=== PATIENT | female | born 1940 | race Caucasian/White ===

== ENCOUNTER 2024-04-27 18:58 | Inpatient (IN) | payer OTHER, SELFPAY ==
[2024-04-27] VITALS (7 sets, daily range): BP systolic 123–166; BP diastolic 55–101; BMI 39.3
[2024-04-27 14:40] LABS: Glucose - Point of Care 170 mg/dl (70-99)
[2024-04-27 15:32] LABS: ALT (SGPT) 23 U/L (0-35); AST (SGOT) 48 U/L (14-36); Albumin 4.1 g/dl (3.5-5.0); Alkaline Phosphatase 97 U/L (38-126); Blood Urea Nitrogen 84 mg/dl (7-17); Calcium 8.9 mg/dl (8.4-10.2); Carbon Dioxide 22 mmol/L (22-30); Chloride 100 mmol/L (98-107); Glucose 106 mg/dl (70-99); Potassium 4.6 mmol/L (3.5-5.1); Sodium 136 mmol/L (135-145); Total Bilirubin 0.2 mg/dl (0.2-1.3); eGFR 18.39
[2024-04-27 15:37] LABS: Hematocrit 28.9 % (37.0-47.0); Hemoglobin 7.8 g/dL (12.0-16.0); Mean Corpuscular Hgb 31.3 pg (27.0-31.0); Mean Corpuscular Volume 116.1 fL (81.0-99.0); Mean Platelet Volume 10.6 fL (7.4-10.4); Platelet Count 142 10^3/uL (130-400); Red Blood Cell Count 2.49 10^6/uL (4.20-5.40); Red Cell Dist. Width 17.3 % (11.5-14.5); White Blood Cell Count 5.3 10^3/uL (4.8-10.8)
--- NOTE | 2024-04-27 16:10 | ED.GENMED ---
History of Present Illness
General
Chief Complaint: Blood Sugar Problem
Source: patient and family
Exam Limitations: none
Time Seen by Provider: 04/27/24 15:02
History of Present Illness
History of Present Illness:
83 yo female with h/o IDDM, HTN, recent UTI, lives with daughter who drove her 2 hours from [place] where she lives to visit family. She had a soft pretzel on the way at 12:30. She states she took her usual Apidra Insulin 12 units at 7:30 0a.m.
When they arrived at [facility] at 1:30 p.m., she seemed to be sleeping, they could not arouse her, attempting to get her out of the car, she seemed dazed and confused, not focusing. They sat her in a chair on the sidewalk, covered her with
blankets and called 911. EMS arrives and states her blood glucose was 30 on arrival, they gave her D10 one amp and on arrival blood glucose 170.
Pt is alert, she does not know why she is here, last thing she remembers is riding in the car, next thing she remembers is seeing her daughter sitting in the chair at the foot of her bed.
She denies headache, CP, SOB.
Past History
Past History
ED Past Medical History: HTN and IDDM
ED Past Surgical History: Gynecological (hysterectomy) and Orthopedic
Social History
Tobacco: Non-smoker
Alcohol: None
Living: with family
Review of Systems
Review of Systems
Allergies reviewed?: Yes
All Other Systems: ROS reviewed and negative except as documented in HPI and ROS
Constitutional: Denies fever
Respiratory: Denies trouble breathing
Cardiac: Denies chest pain
ABD/GI: Denies abdominal pain, nausea, vomiting or diarrhea
: Denies dysuria, incontinence or difficulty voiding
Musculoskeletal: Denies edema
Skin: Reports other (bruise right cheek from previous fall)
Neurological: Reports no symptoms
Phy Exam
Physical Exam
Physical Exam:
GENERAL: No acute distress. A&Ox3.
CONSTITUTIONAL: Afebrile.
EYES: clear, conjunctivae normal
ENMT: moist mucus membranes, Pharynx nl
RESPIRATORY: Regular respirations, nonlabored, lungs clear.
CARDIOVASCULAR: Regular rate and rhythm, no murmurs, no rubs.
GI: Soft, nontender, normal BS
Rectal: light brown heme neg stool
MUSCULOSKELETAL: Moves with ease. Well perfused. No edema
SKIN: Warm, dry, pink, mild ecchymosis right upper cheek.
PSYCH: Normal mood and affect. Well kept, interactive and mildly confused at times.
NEUROLOGIC: Awake, alert and oriented. No focal neurological deficits.
Course
Orders/Labs/Results
Orders:
Orders
04/27/24 15:04
Complete Blood Count/With Diff Urgent
Comprehensive Metabolic Panel Urgent
Ferritin Urgent
Comment: ADD ON
Folate Urgent
Comment: ADD ON
TSH Urgent
Comment: ADD ON
Vitamin B12 Urgent
Comment: ADD ON
04/27/24 16:10
0.9% Sodium Chloride 1000 ml [Nss] 1,000 ml IV BOLUS
04/27/24 16:35
Straight cath- Treatment ONCE
CR Chest - 2 Views Urgent
Comment:
Reason For Exam: hypoglycemia
04/27/24 16:57
Urinalysis Reflex To Culture Urgent
Date Specimen was Collected: 04/27/24
Time Specimen was Collected: 16:56
Urine Microscopic Reflex Cult Urgent
Urine Culture Urgent
PAUL Source: U
Specimen Description:
Date Specimen was Collected: 04/27/24
Time Specimen was Collected: 16:56
04/27/24 17:57
CefTRIAXone [Rocephin] 1,000 mg IV NOW STA
04/27/24 18:36
Type+Screen Stat
Hemetest Stools As Directed
04/27/24 18:39
Add On- LAB Stat
Tests Added?: tsh, b12, ferritin, folate
04/27/24 18:41
Admit/Transfer Patient As Directed
Co-Sign Provider:
Level of Care: Inpatient admission
Assign to:: Medical/Surgical
Physician / Group: le mauricio
Diagnosis: UTi
Reason for Hospitalization: UTI
Expected length of stay greater than two midnights?: Yes
ELOS- Estimated Length of Stay in days: 3
I certify the patient meets the requirements for IP care: Yes
PRN Pain Medication Management As Directed
May give lesser potent ordered pain med per pt: Yes
preference::
Protocol:: Medication orders for pain may be administered in a
manner that supports deferring to patient preference
when the pt is:
- Requesting an ordered lesser potent pain medication.
Least to most potent pain medications are defined
as: acetaminophen < NSAID < tramadol < opioids
(morphine, oxycodone, hydromorphone).
- Requesting a lesser dose of the same medication IF
ORDERED.
- Requesting a less intrusive route of administration
if both routes are prescribed by the provider (PO <
IV).
04/27/24 18:43
Code Status As Directed
Resuscitation Status: Full Code
Abnormal Lab Results
04/27/24 04/27/24 04/27/24
14:29 15:04 16:57
RBC 2.49 L 10^6/uL
(4.20-5.40)
Hgb 7.8 L g/dL
(12.0-16.0)
Hct 28.9 L %
(37.0-47.0)
MCV 116.1 H fL
(81.0-99.0)
MCH 31.3 H pg
(27.0-31.0)
MCHC 27.0 L g/dL
(33.0-37.0)
RDW 17.3 H %
(11.5-14.5)
MPV 10.6 H fL
(7.4-10.4)
Absolute Lymphs (auto) 0.7 L 10^3/uL
(1.2-3.4)
Immature Gran % 0.8 H %
(0-0.5)
Neutrophils % 79.2 H %
(42.2-75.2)
Lymphocytes % 13.2 L %
(20.5-51.1)
BUN 84 H mg/dl
(7-17)
Creatinine 2.5 H mg/dL
(0.6-1.0)
Glucose 106 H mg/dl
(70-99)
AST 48 H U/L
(14-36)
Leukocyte Esterase Rfl 1+ A
(Negative)
Urine WBC (Reflex) 21-25 A /HPF
(0-5)
Urine Bacteria (Reflex) Many A
(Negative)
Urine Glucose Trace A
(Negative)
POC Glucose 170 H mg/dl
(70-99)
04/27/24 15:04
04/27/24 15:04
Vital Signs
Initial and Last Documented VS:
Initial Vital Signs
Temp Pulse Resp BP Pulse Ox
98.3 F 60 20 166/57 98
04/27/24 14:38 04/27/24 14:38 04/27/24 14:38 04/27/24 14:38 04/27/24 14:38
Last Documented Vital Signs
Temp Pulse Resp BP Pulse Ox
98.3 F 58 17 166/57 98
04/27/24 14:38 04/27/24 14:53 04/27/24 14:53 04/27/24 14:38 04/27/24 15:09
MDM/Problems Addressed
Differential Diagnosis Includes:
Insulin misuse, UTI,
MDM/Problems Addressed:
83 yo female with h/o IDDM, HTN, recent UTI, lives with daughter who drove her 2 hours from [place] where she lives to visit family. She had a soft pretzel on the way at 12:30. She states she took her usual Apidra Insulin 12 units at 7:30 0a.m.
When they arrived at [facility] at 1:30 p.m., she seemed to be sleeping, they could not arouse her, attempting to get her out of the car, she seemed dazed and confused, not focusing. They sat her in a chair on the sidewalk, covered her with
blankets and called 911. EMS arrives and states her blood glucose was 30 on arrival, they gave her D10 one amp and on arrival blood glucose 170.
Pt is alert, she does not know why she is here, last thing she remembers is riding in the car, next thing she remembers is seeing her daughter sitting in the chair at the foot of her bed.
She denies headache, CP, SOB.
CBC: Hemoglobin 7.8, family member states she has needed blood transfusions in the past
CMP: BUN/creat 84/2.5 family member say her creat hangs around 3.0
Glucose 106 from 170 on arrival
4:27 PM:
Glucose 89
Pt eating
5:50 PM:
UA shows infection
Case discussed with Dr. Flores who agrees with admit for hypoglycemia, YELENA, UTI
Hospitalist notified of admission
Blood consent signed and scanned into chart
*Critical Care Note
Total Time (30-74mins, 75-104mins- exclusive of procedures): Not Applicable
ED Attending Note
-
Portions of this chart may have been created with voice recognition software.� Occasional wrong word or��sound alike� substitutions may have occurred due to the inherent limitations of voice recognition software.
Discharge Plan
Departure
Patient Disposition: Admit
Date of Disposition: 04/27/24
Time of Disposition: 17:14
Admit to: Med/Surg
Presentation/result/management discussed w/ accepting MD/DO: Hospitalist
Condition: Fair
Discharge Problem:
Hypoglycemia associated with diabetes, Acute UTI
Prescriptions:
No Action
allopurinol 100 mg Tablet
100 mg PO DAILY
aspirin 81 mg Tablet,Delayed Release (Dr/Ec)
81 mg PO DAILY
pravastatin 10 mg Tablet
10 mg PO DAILY
ferrous sulfate 325 mg (65 mg iron) Tablet
325 mg PO DAILY
lisinopril 30 mg Tablet
30 mg PO DAILY
bumetanide [Bumex] 1 mg Tablet
1 mg PO BID
ezetimibe [Zetia] 10 mg Tablet
10 mg PO DAILY
fenofibrate nanocrystallized 145 mg Tablet
145 mg PO DAILY
insulin glargine [Lantus Solostar U-100 Insulin] 100 unit/mL (3 mL) Insulin Pen
0 unit SC HS
Patient Comments:
family stated patient just gives herself what ever units she think she needs.
omeprazole 20 mg Tablet,Delayed Release (Dr/Ec)
20 mg PO DAILY
Apidra SoloStar U-100 Insulin 100 unit/mL Insulin Pen
12 sliding scale dose SC AC
Jardiance 10 mg Tablet
10 mg PO DAILY
amlodipine [Norvasc] 10 mg Tablet
10 mg PO DAILY
Referrals:
UNKNOWN - PT DOES,NOT KNOW [Family Provider] -
Interventions
Interventions:
*Risk Screen - Suicide Last Done: 04/27/24 14:52
*General Assessment Last Done: 04/27/24 14:52
*Neglect/Abuse Screening Last Done: 04/27/24 14:52
ED- Fall Risk Assessment Last Done: 04/27/24 15:09
*ED COVID-19 Vaccine History Last Done: 04/27/24 14:53
ED- Neurological Assessment Last Done: 04/27/24 14:40
Discharge Date and Time
Print Language: SAMI
[2024-04-27 16:13] LABS: % Basophils 0.4 % (0-2); % Eosinophils 1.1 % (0-6); % Immature Granulocytes 0.8 % (0-0.5); % Lymphocytes 13.2 % (20.5-51.1); % Monocytes 5.3 % (1.7-9.3); % Neutrophils 79.2 % (42.2-75.2); Absolute Eosinophils 0.1 10^3/uL (0-0.7); Absolute Lymphocytes 0.7 10^3/uL (1.2-3.4); Absolute Monocytes 0.3 10^3/uL (0.1-0.6); Absolute Neutrophils 4.2 10^3/uL (1.4-6.5); Nucleated Red Blood Cells % 0 %
[2024-04-27 16:18] LABS: Anisocytosis 2+; Hypochromasia Slight; Macrocytosis 3+; Normal RBC Morphology No
[2024-04-27 16:30] LABS: Glucose - Point of Care 89 mg/dl (70-99)
[2024-04-27] MEDS: NSS 1000 IV (17:17)
[2024-04-27 17:27] LABS: Urine Albumin Trace (Neg - Trace); Urine Bilirubin Negative (Negative); Urine Character Clear (Clear); Urine Color Straw; Urine Glucose Trace (Negative); Urine Ketone Negative (Negative); Urine Leukocyte 1+ (Negative); Urine Nitrite Negative (Negative); Urine Occult Blood Negative (Negative); Urine Specific Gravity 1.015 (<1.030); Urine Urobilinogen Negative (Neg - 1+)
[2024-04-27 17:37] LABS: Urine Squamous Cell None seen /LPF (Few)
[2024-04-27 17:38] LABS: Urine Bacteria Many (Negative); Urine Red Blood Cell 0-2 /HPF (0-2); Urine White Cell 21-25 /HPF (0-5)
[2024-04-27] MEDS: ROCEPHIN 1000 MG IV (18:15)
--- NOTE | 2024-04-27 18:15 | HPS.HSE ---
Family Physician
-
Family Physician: NOT KNOW UNKNOWN - PT DOES
Chief Complaint
-
unresponsive
History of Present Illness
83 yo female with h/o IDDM, HTN, recent UTI, lives with daughter who drove her 2 hours from [place] where she lives to visit family. she had a soft pretzel on her way. She states she took her usual Apidra Insulin 12 units at 7:30 0a.m. she ate
cereal this morning, when she took insulin. When they arrived at relatives house at 1:30 p.m., she seemed to be sleeping, they could not arouse her, attempting to get her out of the car, she seemed dazed and confused, not focusing. They sat her in a
chair on the sidewalk, called 911.her blood sugar were low in 30's, they gave her D10 Enroute to the hospital. upon my assessment patient does not remember anything that happened. she is awake, alert and seems little confused. denied fever, chills,
runny nose,congestion, cough. denied ARTHUR, dizzy. denied abdominal pain,n,nv,d. denied chest pain,sob. denied dysuria or hematuria. history primary obtained from family at the bedside.
Patient was noted to have a UTI in the ER. Received a dose of ceftriaxone in the ER. Admitting for further management
Medical History
Past Medical History
Past Medical History: Reports Other
Additional Past Medical History:
Hypertension
Type 2 diabetes
Gout
CHF
Iron deficiency anemia
GERD
Hyperlipidemia
Past Surgical History: Reports Other
Additional Past Surgical History:
Part of pancreatitis resected
Toe amputation
Cholecystectomy
Social History
Tobacco: Non-smoker
Alcohol: None
Drug: None
Personal: Single
Living: With Family
Family History
Family History: Not pertinent
Allergies / Home Medications
Allergies reflects when Allergies were last updated in [employer]
Home Medications with original date entered in [employer]
Allergy/Medication List:
Allergies
Allergy/AdvReac Type Severity Reaction Status Date / Time
No Known Allergies Allergy Verified 04/27/24 14:53
Home Medications
allopurinol 100 mg tablet 100 mg PO DAILY 04/27/24
amlodipine 10 mg tablet (Norvasc) 10 mg PO DAILY 04/27/24
aspirin 81 mg tablet,delayed release 81 mg PO DAILY 04/27/24
bumetanide 1 mg tablet 1 mg PO BID 04/27/24
empagliflozin 10 mg tablet (Jardiance) 10 mg PO DAILY 04/27/24
ezetimibe 10 mg tablet (Zetia) 10 mg PO DAILY 04/27/24
fenofibrate nanocrystallized 145 mg tablet 145 mg PO DAILY 04/27/24
ferrous sulfate 325 mg (65 mg iron) tablet 325 mg PO DAILY 04/27/24
insulin glargine 100 unit/mL (3 mL) subcutaneous pen (Lantus Solostar U-100 Insulin) 0 unit SC HS 04/27/24
insulin glulisine U-100 100 unit/mL subcutaneous pen (Apidra SoloStar U-100 Insulin) 12 sliding scale dose SC AC 04/27/24
lisinopril 30 mg tablet 30 mg PO DAILY 04/27/24
omeprazole 20 mg tablet,delayed release 20 mg PO DAILY 04/27/24
pravastatin 10 mg tablet 10 mg PO DAILY 04/27/24
Review of Systems
-
Constitutional: Reports No Symptoms
EENT: Reports No Symptoms
Respiratory: Reports No Symptoms
Cardiac: Reports No Symptoms
Abdomen/GI: Reports No Symptoms
: Reports No Symptoms
Musculoskeletal: Reports No Symptoms
Skin: Reports No Symptoms
Neurological: Reports No Symptoms
Endocrine: Reports No Symptoms
Hematologic/Lymphatic: Reports No Symptoms
Psych: Reports No Symptoms
Physical Exam
Vital Signs
Vital Signs
Temp Pulse Resp BP Pulse Ox
98.3 F 58 17 166/57 98
04/27/24 14:38 04/27/24 14:53 04/27/24 14:53 04/27/24 14:38 04/27/24 15:09
Physical Exam
General: Well Developed, Well Nourished and No Apparent Distress
HEENT: NormoCephalic, Moist mucous membranes and Atraumatic
Respiratory: Clear
Cardiac: S1/S2 and Regular Rhythm; No Murmur or Rub
GI: Soft, Non Tender, Non Distended and Normal Bowel Sounds; No Organomegaly
Rectal: Deferred by Provider
Musculoskeletal: No Clubbing, No Cyanosis and No Edema
Skin: No Rash
Neuro: Awake, Alert and Nonfocal/grossly intact
Psych: Calm
Laboratory Results
-
04/27/24 15:04
04/27/24 15:04
Laboratory Results
Total Bilirubin 0.2 mg/dl (0.2-1.3) 04/27/24 15:04
AST 48 U/L (14-36) H 04/27/24 15:04
ALT 23 U/L (0-35) 04/27/24 15:04
Alkaline Phosphatase 97 U/L (38-126) 04/27/24 15:04
Data Reviewed
-
Diagnostic Radiology: Report Reviewed by me
Lab Data: Labs Reviewed by me
Impression/Plan
-
# metabolic encephalopathy likely from Urinary tract infection
-IV ceftriaxone
-Urine culture pending
-Tylenol as needed for fever or pain
# Possible pneumonia
-Chest x-ray impression of There is a right perihilar/lower lobe opacity which may represent pneumonia or atelectasis.
-Patient denied any cough, congestion, fever or short of breath
-IV ceftriaxone continued
# Type 2 diabetes with symptomatic hypoglycemia
-Hold Jardiance, hold Lantus
-CHO diet
#macrocytic anemia
# hxt of Iron deficiency anemia
-Hemoglobin 7.8
-No active bleeding
-Ferrous sulfate continued
-negative heme test
-Type and screen
# Acute kidney injury on chronic kidney disease stage III likely dehydration
-Creatinine of 2.5
-Patient received normal saline in the ER
-Monitor BMP in a.m.
# Gout
-Allopurinol continued
# Essential hypertension
-Norvasc continue with hold parameters
-Hold lisinopril due to YELENA
# GERD
-PPI continued
# History of CHF
-Patient not in acute exacerbation
-Bumex held
# Hyperlipidemia
-Zetia, fenofibrate continued
# DVT prophylaxis
-Heparin subcu
# CODE STATUS
-Full code
[2024-04-27 19:09] LABS: Glucose - Point of Care 235 mg/dl (70-99)
--- NOTE | 2024-04-27 19:18 | W.PN.UPDATE ---
Update Note
Progress Note Update
This note serves as an addendum to the H&P by bone glue maker DAPHNE Nancy ALEJANDRE
HPI
83F visiting family , BiB daughter HX IDDM, HTN, recent UTI, seen at ER
- lives with daughter who drove her 2 hours from [place] where she lives to visit family.
- had soft pretzel on the way at noon and cereal for breakfast
- tool usual Apidra Insulin 12 units at 7:30 a.m.
- When they arrived at [facility] at 1:30 p.m., she seemed to be sleeping, they could not arouse her, attempting to get her out of the car, she seemed dazed and confused, not focusing.
- They sat her in a chair on the sidewalk, covered her with blankets and called 911.
- EMS arrivesBG \\s 30 on arrival, they gave her D10 one amp and on arrival blood glucose 170.
Pt is alert, she does not know why she is here, last thing she remembers is riding in the car, next thing she remembers is seeing her daughter sitting in the chair at the foot of her bed.
ROS: She denies headache, CP, SOB.
PHX; as above
Vital Signs
Temp Pulse Resp BP Pulse Ox
98.3 F 58 17 166/57 98
04/27/24 14:38 04/27/24 14:53 04/27/24 14:53 04/27/24 14:38 04/27/24 15:09
PE
Gen: No Apparent Distress
HEENT: Moist mucous membranes
Neck: supple
Lungs: CTA
Cor: S1/S2 and Regular Rhythm
Abdomen: Soft, Non Tender, Non Distended
MAYUR: NEG stool HoB per ER AP
INDEPENDENT LIVING INSTRUCTOR:Awake, Alert and Nonfocal/grossly intact
MS:
Psych
04/27/24 04/27/24
15:04 16:57
WBC 5.3
Hgb 7.8 L
MCV 116.1 H
Plt Count 142
BUN 84 H
Creatinine 2.5 H
eGFR 18.39
Urine Nitrite (Reflex) Negative
Urine WBC (Reflex) 21-25 A
Urine Bacteria (Reflex) Many A
04/27/24 CXR: right perihilar/lower lobe opacity which may represent pneumonia or atelectasis.
NO PRIOR DH admission:
ASSESSMENT & PLAN
Hypoactive multifactorial TME, symptomatic hypoglycemia, UTI, severe anemia, renal insufficeciency of unknown chrnicity) - imprved wakefullness in response to D10 given by EMS
HX IrDMT2
- Fall precaution
- Hold Jardiance, Home Insulin regime
- Hypoglycemic protocol for ISS low
- ADA diet
UTI - asymptomatic
- UCx sent
- IV CFTX
- Tylenol PRN
Possible PNA vs Atx
- Nl WCC, No cough, no recent URTI
- check PCT if POS will ad PO Azithromycin
- current IV CFTX is for UTI
Macrocytic anemia; no priot Hgb data: Hgb 7.8
- negative HoB stool at ER
- no active bleeding
- Type and screen &
- Blood consented
- check Ferritin
- check B12, Folate , TSH
Essential hypertension
- cont. Norvasc with hold parameters
- Hold lisinopril due to YELENA
Renal insufficiency of unknown chronicity : No prior Cr data
- YELENA vs YELENA on CKD
- Creatinine of 2.5
- IV NS
- Hold Lisinopril
- Trend Cr
Gout
- no acute flare
- Lower Allopurinol to [address] of 100 daily due to low eGFR
GERD
- on PO PPI continued
HX CHF NOS
- Not in acute exacerbation
- Bumex held due renal insufficiency
Hyperlipidemia
- on Zetia, fenofibrate
DVT prophylaxis: SQH
Full code
IP MS
[2024-04-27 20:11] LABS: Folate 14.1 ng/ml (2.76-20); Vitamin B12 933 pg/ml (239-931)
[2024-04-27 20:18] LABS: Procalcitonin < 0.05 ng/ml (0.0-0.25)
[2024-04-27 21:20] LABS: Glucose - Point of Care 214 mg/dl (70-99)
[2024-04-27] MEDS: HEPARIN 5000 UNITS SC (22:09)
[2024-04-28 03:18] LABS: Glucose - Point of Care 128 mg/dl (70-99)
--- NOTE | 2024-04-28 03:56 | PTCARENOTE ---
Pt received from ER last night, pt pulled over to her bed. Pt confused to place. States she is cold. Pt seen shaking, asking for more covers. Pt oriented to the room call norris within reach, and bed alarm placed for pt's safety. Unable to get oral or
axillary temperatures even after covering the pt with warm blankets. Rectal temp=94. CYBER SYSTEMS OPERATIONS SPECIALIST made aware and order for a gonzales hugger given. Pt'd goal Temp=97. DP=115/57, HR=67, SpO2=95% on RA. Pt's GN=027. At 0030, pt temp=97.4 orally, Gonzales hugger on
hold. Pt's Temp rechecked at 0300, =97.6 orally. Pt's EV=665. Will continue to monitor the pt.
[2024-04-28 04:59] VITALS: BMI 38.9
[2024-04-28 06:53] LABS: Blood Urea Nitrogen 73 mg/dl (7-17); Calcium 8.5 mg/dl (8.4-10.2); Carbon Dioxide 19 mmol/L (22-30); Chloride 107 mmol/L (98-107); Estimated Creatinine Clearance 16 ml/min; Glucose 102 mg/dl (70-99); Potassium 4.6 mmol/L (3.5-5.1); Sodium 139 mmol/L (135-145); eGFR 21.43
[2024-04-28 07:30] VITALS: BP 127/50
[2024-04-28 07:32] LABS: Glucose - Point of Care 103 mg/dl (70-99)
[2024-04-28 07:47] LABS: Hematocrit 28.2 % (37.0-47.0); Mean Corp Hgb Conc. 31.9 g/dL (33.0-37.0); Mean Corpuscular Hgb 31.5 pg (27.0-31.0); Mean Corpuscular Volume 98.6 fL (81.0-99.0); Mean Platelet Volume 9.9 fL (7.4-10.4); Platelet Count 173 10^3/uL (130-400); Red Blood Cell Count 2.86 10^6/uL (4.20-5.40); Red Cell Dist. Width 16.5 % (11.5-14.5); White Blood Cell Count 4.6 10^3/uL (4.8-10.8)
[2024-04-28] MEDS: NOVOLOG FLEXPEN-LOW RESISTANCE SC (09:35)
[2024-04-28] MEDS: FEOSOL 325 MG PO (09:36)
[2024-04-28] MEDS: TRICOR 145 MG PO (09:36)
[2024-04-28] MEDS: PROTONIX 40 MG PO (09:36)
[2024-04-28] MEDS: ZYLOPRIM 50 MG PO (09:36)
[2024-04-28] MEDS: ASPIR LOW (ENTERIC COATED) 81 MG PO (09:36)
[2024-04-28] MEDS: ZETIA 10 MG PO (09:36)
[2024-04-28] MEDS: PRAVACHOL 10 MG PO (09:37)
[2024-04-28] MEDS: HEPARIN 5000 UNITS SC ×2 (09:37→20:51)
[2024-04-28] MEDS: NORVASC 10 MG PO (09:37)
[2024-04-28] MEDS: FLUSH (NSS) 1 FLUSH IV ×2 (09:38→13:17)
[2024-04-28 10:23] LABS: Glycohemoglobin (HgbA1c) 7.3 % (4.0-5.6)
--- NOTE | 2024-04-28 11:15 | W.PN.HOSP.TC ---
Today's Communication/Plan
-
see bold
Assessment / Plan
Assessment / Plan
Gen: NAD, Awake and alert
Eyes: EOMI, PERRLA, no scleral icterus.
Neck: supple.
CV: RRR, +S1/S2, no m/r/g.
Resp: CTAB, no rales, wheezes, or rhonchi.
Abd: +BS, soft, NT, ND
Skin: No rashes.
Neuro: CN 2-12 intact, non-focal.
Psych: Normal mood and affect.
CXR: R perihilar/lower lobe opacity which may represent pneumonia or atelectasis.
Acute metabolic encephalopathy:
-likely due to YELENA, hypoglycemia, and possible UTI
-cont IV ceftriaxone
-Urine culture pending
DM2:
-a1c 7.3%
-holding Jardiance/Lantus with symptomatic hypoglycemia
-SSI/accuchecks/diabetic diet
YELENA:
-baseline Cr unknown
-start NS @ 60cc/hr
Other problems:
Chronic anemia: Hb stable, Heme NEG, cont PO Fe
Bacterial PNA has been ruled out with NEG procalcitonin
Gout: cont Allopurinol
Essential hypertension: Cont Norvasc, holding ACEi with YELENA
GERD: cont PPI
Chronic CHF (unknown type): Bumex on hold with YELENA
Hyperlipidemia: Cont Zetia/fenofibrate
FULL/Heparin
Total time spent on today's encounter was 50 minutes which included time spent in counseling the patient/family regarding diagnosis and treatment plan as listed above, goals of care, and symptom management. Case was discussed with nursing staff,
specialists, and care coordinators/case management. All labs and imaging personally reviewed by me. Remainder the time spent in detailed review of previous records, lab data, imaging, and other medical provider documentation.
Anticipated Discharge: 24 - 48 hours
Subjective/Interval History
-
Date of Service: April 28, 2024
Objective Data
-
Labs:
Laboratory Results
04/28/24
06:22
WBC 4.6 L
Hgb 9.0 L
Hct 28.2 L
Plt Count 173 D
Sodium 139
Potassium 4.6
Chloride 107
Carbon Dioxide 19 L
BUN 73 H
Creatinine 2.2 H
Glucose 102 H
Calcium 8.5
Vital Signs:
Vital Signs
Temp Pulse Resp BP Pulse Ox
97.8 F 67 20 127/50 97
04/28/24 07:30 04/28/24 07:30 04/28/24 07:30 04/28/24 09:37 04/28/24 07:30
I&O
04/27/24 04/28/24 04/29/24
06:59 06:59 06:59
Intake Total 240 / 240
Output Total 700 / 700
Balance -460 / -460
[2024-04-28 11:48] VITALS: BP 130/65; PULSE 75; O2SAT 98
[2024-04-28 11:55] LABS: Glucose - Point of Care 236 mg/dl (70-99)
[2024-04-28] MEDS: NSS 1000 IV (13:15)
[2024-04-28] MEDS: NOVOLOG FLEXPEN-LOW RESISTANCE 2 UNITS SC (13:35)
--- NOTE | 2024-04-28 15:19 | CM ---
CM reviewed chart. Patient is here for metabolic encephalopathy due to UTI. She had a dwelling attached to her daughter's [place] home. She is independent with her walker. She lives alone. She does not drive. Her daughter provides transportation. She
also owns a cane and wheelchair. 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 She denies any +SDOHs. She was with [facility] for [facility], but was to be discharged yesterday, 04/27/2024. She has an active PCP and pharmacy.
ANTICIPATED DISCHARGE PLAN: Discharge home with support of her daughter and family, once medically cleared.
[2024-04-28 15:29] VITALS: BP 134/62
[2024-04-28 16:52] LABS: Glucose - Point of Care 272 mg/dl (70-99)
[2024-04-28] MEDS: NOVOLOG FLEXPEN-LOW RESISTANCE 3 UNITS SC (17:53)
[2024-04-28] MEDS: STERILE WATER FOR INJECTION 10 ML IV (17:54)
[2024-04-28] MEDS: FLUSH (NSS) 2 FLUSH IV (17:54)
[2024-04-28] MEDS: ROCEPHIN 1000 MG IV (17:54)
[2024-04-28 21:04] LABS: Glucose - Point of Care 295 mg/dl (70-99)
[2024-04-28 23:55] VITALS: BP 122/65
[2024-04-29] MEDS: NSS 1000 IV ×2 (05:20→22:15)
--- NOTE | 2024-04-29 05:44 | PTCARENOTE ---
Pt awake intermittently t/o the night. Pt using call norris appropriately. IVF infusing as ordered. No issues to report. Will continue to monitor.
[2024-04-29 06:00] VITALS: BMI 38.8
[2024-04-29 07:30] VITALS: BP 106/63
[2024-04-29 08:01] LABS: Glucose - Point of Care 180 mg/dl (70-99)
[2024-04-29] MEDS: NOVOLOG FLEXPEN-LOW RESISTANCE 1 UNITS SC (08:04)
[2024-04-29] MEDS: ASPIR LOW (ENTERIC COATED) 81 MG PO (08:05)
[2024-04-29] MEDS: PROTONIX 40 MG PO (08:05)
[2024-04-29] MEDS: TRICOR 145 MG PO (08:05)
[2024-04-29] MEDS: PRAVACHOL 10 MG PO (08:05)
[2024-04-29] MEDS: ZETIA 10 MG PO (08:05)
[2024-04-29] MEDS: FEOSOL 325 MG PO (08:05)
[2024-04-29] MEDS: HEPARIN 5000 UNITS SC (08:07)
[2024-04-29] MEDS: NORVASC PO (08:07)
--- NOTE | 2024-04-29 09:13 | W.PN.HOSP.TC ---
Today's Communication/Plan
-
see bold
Assessment / Plan
Assessment / Plan
Gen: NAD, Awake and alert
Eyes: EOMI, PERRLA, no scleral icterus.
Neck: supple.
CV: remains RRR, +S1/S2, no m/r/g.
Resp: remains CTAB, no rales, wheezes, or rhonchi.
Abd: remains +BS, soft, NT, ND
Skin: No rashes.
Neuro: CN 2-12 intact, non-focal.
Psych: Normal mood and affect.
04/27/24 16:57 Urine Urine Culture - Preliminary
Gram negative bacilli
CXR: R perihilar/lower lobe opacity which may represent pneumonia or atelectasis.
Acute metabolic encephalopathy:
-likely due to YELENA, hypoglycemia, and possible UTI
-cont IV ceftriaxone
-Urine culture pending
DM2:
-a1c 7.3%
-holding Jardiance/Lantus with symptomatic hypoglycemia
-SSI/accuchecks/diabetic diet
YELENA:
-baseline Cr unknown
-cont NS @ 60cc/hr
Other problems:
Chronic anemia: Hb stable, Heme NEG, cont PO Fe
Bacterial PNA has been ruled out with NEG procalcitonin
Gout: cont Allopurinol
Essential hypertension: Cont Norvasc, holding ACEi with YELENA
GERD: cont PPI
Chronic CHF (unknown type): Bumex on hold with YELENA
Hyperlipidemia: Cont Zetia/fenofibrate
FULL/Heparin
Anticipated Discharge: Within 24 hours
Subjective/Interval History
-
Date of Service: April 29, 2024
No new complaints.
Objective Data
-
Labs:
Laboratory Results
04/29/24
09:09
WBC Pending
Hgb Pending
Hct Pending
Plt Count Pending
Sodium Pending
Potassium Pending
Chloride Pending
Carbon Dioxide Pending
BUN Pending
Creatinine Pending
Glucose Pending
Calcium Pending
Vital Signs:
Vital Signs
Temp Pulse Resp BP Pulse Ox
97.8 F 75 20 106/63 97
04/29/24 07:30 04/29/24 07:30 04/29/24 07:30 04/29/24 08:07 04/29/24 07:30
I&O
04/28/24 04/29/24 04/30/24
06:59 06:59 06:59
Intake Total 240 / 240 1740 / 1740
Output Total 700 / 700
Balance -460 / -460 1740 / 1740
[2024-04-29 09:19] LABS: Hematocrit 27.8 % (37.0-47.0); Hemoglobin 8.9 g/dL (12.0-16.0); Mean Corpuscular Hgb 31.2 pg (27.0-31.0); Mean Corpuscular Volume 97.5 fL (81.0-99.0); Mean Platelet Volume 10.1 fL (7.4-10.4); Platelet Count 163 10^3/uL (130-400); Red Blood Cell Count 2.85 10^6/uL (4.20-5.40); Red Cell Dist. Width 16.2 % (11.5-14.5)
[2024-04-29 10:22] LABS: Blood Urea Nitrogen 66 mg/dl (7-17); Calcium 8.7 mg/dl (8.4-10.2); Carbon Dioxide 18 mmol/L (22-30); Chloride 110 mmol/L (98-107); Estimated Creatinine Clearance 17 ml/min; Glucose 248 mg/dl (70-99); Potassium 5.8 mmol/L (3.5-5.1); Sodium 139 mmol/L (135-145); eGFR 22.66
[2024-04-29 11:46] LABS: Glucose - Point of Care 403 mg/dl (70-99)
[2024-04-29 12:36] LABS: Glucose 306 mg/dl (70-99)
[2024-04-29] MEDS: NOVOLOG FLEXPEN-LOW RESISTANCE 4 UNITS SC (12:40)
[2024-04-29] MEDS: TYLENOL 650 MG PO ×2 (12:43→20:12)
[2024-04-29 15:38] VITALS: BP 149/62
[2024-04-29 16:54] LABS: Glucose - Point of Care 224 mg/dl (70-99)
[2024-04-29] MEDS: NOVOLOG FLEXPEN-LOW RESISTANCE 2 UNITS SC (17:11)
[2024-04-29] MEDS: ROCEPHIN 1000 MG IV (17:12)
[2024-04-29] MEDS: STERILE WATER FOR INJECTION 10 ML IV (17:12)
[2024-04-29] MEDS: HEPARIN SC ×2 (20:01→21:28)
[2024-04-29 21:15] LABS: Glucose - Point of Care 259 mg/dl (70-99)
[2024-04-29 23:27] VITALS: BP 144/63
[2024-04-30 06:00] VITALS: BMI 39.5
[2024-04-30 07:24] LABS: Glucose - Point of Care 237 mg/dl (70-99)
[2024-04-30 07:27] VITALS: BP 169/69
[2024-04-30 08:30] LABS: Hematocrit 28.1 % (37.0-47.0); Hemoglobin 8.9 g/dL (12.0-16.0); Mean Corp Hgb Conc. 31.7 g/dL (33.0-37.0); Mean Corpuscular Hgb 31.3 pg (27.0-31.0); Mean Corpuscular Volume 98.9 fL (81.0-99.0); Mean Platelet Volume 10.7 fL (7.4-10.4); Platelet Count 136 10^3/uL (130-400); Red Blood Cell Count 2.84 10^6/uL (4.20-5.40); Red Cell Dist. Width 15.9 % (11.5-14.5); White Blood Cell Count 5.1 10^3/uL (4.8-10.8)
--- NOTE | 2024-04-30 08:50 | W.PN.HOSP.TC ---
Today's Communication/Plan
-
see bold
Assessment / Plan
Assessment / Plan
Gen: NAD, Awake and alert
Eyes: EOMI, PERRLA, no scleral icterus.
Neck: supple.
CV: Continues to remain RRR, +S1/S2, no m/r/g.
Resp: Continues to room CTAB, no rales, wheezes, or rhonchi.
Abd: Continues to room +BS, soft, NT, ND
Skin: No rashes.
Neuro: CN 2-12 intact, non-focal.
Psych: Normal mood and affect.
04/27/24 16:57 Urine Urine Culture - Preliminary
Gram negative bacilli
CXR: R perihilar/lower lobe opacity which may represent pneumonia or atelectasis.
Acute metabolic encephalopathy:
-likely due to YELENA, hypoglycemia, and acute UTI
-cont IV ceftriaxone
-follow UCx
Heme POS stool:
-heparin held (was bruising as well)
-Hb stable
-pt is on PO Fe but nursing reports very black stool, will have GI see
DM2:
-a1c 7.3%
-Jardiance/Lantus were held with symptomatic hypoglycemia
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
-SSI/accuchecks/diabetic diet
YELENA:
-baseline Cr unknown
-cont NS @ 60cc/hr
-hyperkalemia, start Lokelma
-c/s renal
-check renal U/S
Other problems:
Chronic anemia: Hb stable, Heme POS, cont PO Fe, see above
Bacterial PNA has been ruled out with NEG procalcitonin
Gout: cont Allopurinol
Essential hypertension: Cont Norvasc, holding ACEi with YELENA
GERD: cont PPI
Chronic CHF (unknown type): Bumex on hold with YELENA
Hyperlipidemia: Cont Zetia/fenofibrate
Morbid obesity due to excess calories
FULL/SCDs
Total time spent on today's encounter was 50 minutes which included time spent in counseling the patient/family regarding diagnosis and treatment plan as listed above, goals of care, and symptom management. Case was discussed with nursing staff,
specialists, and care coordinators/case management. All labs and imaging personally reviewed by me. Remainder the time spent in detailed review of previous records, lab data, imaging, and other medical provider documentation.
Anticipated Discharge: > 48 hours
Subjective/Interval History
-
Date of Service: April 30, 2024
No new complaints.
Objective Data
-
Labs:
Laboratory Results
04/30/24
07:44
WBC 5.1
Hgb 8.9 L
Hct 28.1 L
Plt Count 136
Sodium Pending
Potassium Pending
Chloride Pending
Carbon Dioxide Pending
BUN Pending
Creatinine Pending
Glucose Pending
Calcium Pending
Vital Signs:
Vital Signs
Temp Pulse Resp BP Pulse Ox
97.6 F 69 16 169/69 100
04/29/24 23:27 04/30/24 07:27 04/30/24 07:27 04/30/24 07:27 04/30/24 07:27
I&O
04/29/24 04/30/24 05/01/24
06:59 06:59 06:59
Intake Total 1740 / 1740 720 / 720
Output Total 200 / 200
Balance 1740 / 1740 520 / 520
[2024-04-30 09:06] LABS: Blood Urea Nitrogen 59 mg/dl (7-17); Calcium 9.1 mg/dl (8.4-10.2); Carbon Dioxide 19 mmol/L (22-30); Chloride 112 mmol/L (98-107); Estimated Creatinine Clearance 17 ml/min; Glucose 228 mg/dl (70-99); Potassium 5.6 mmol/L (3.5-5.1); Sodium 139 mmol/L (135-145); eGFR 22.66
[2024-04-30] MEDS: PRAVACHOL 10 MG PO (09:17)
[2024-04-30] MEDS: NORVASC 10 MG PO (09:17)
[2024-04-30] MEDS: TRICOR 145 MG PO (09:17)
[2024-04-30] MEDS: ZETIA 10 MG PO (09:17)
[2024-04-30] MEDS: FEOSOL 325 MG PO (09:17)
[2024-04-30] MEDS: ASPIR LOW (ENTERIC COATED) 81 MG PO (09:17)
[2024-04-30] MEDS: ZYLOPRIM 50 MG PO (09:18)
[2024-04-30] MEDS: PROTONIX 40 MG PO (09:19)
[2024-04-30] MEDS: LANTUS 0.06 UNITS SC (09:20)
[2024-04-30] MEDS: NOVOLOG FLEXPEN-LOW RESISTANCE 2 UNITS SC (09:20)
[2024-04-30] MEDS: TYLENOL 650 MG PO ×2 (09:27→22:13)
[2024-04-30] MEDS: LOKELMA 10 GRAM PO ×3 (10:49→17:21)
--- NOTE | 2024-04-30 11:09 | CON.GI ---
Addendum entered and electronically signed by Calvin Waller MD 04/30/24 18:10:
I saw and examined the patient.
The PA's note was reviewed and I agree with the note.
Comment:
83 year old female with h/o DM, HTN, CKD, CHF, ROD with baseline Hgb in 8 range who p/w hypoglycemia. She was also found to have a UTI. GI being consulted for heme +ve stool o/n. No overt sign of GI bleeding.
Agree with conservative mx, monitor Hgb and call us back if acute GI bleeding is suspected. GI s/o.
Original Note:
Consultation
-
Date/Time Consultation Requested: 04/30/24 0948
Date/Time Consultation Performed: 04/30/24 1000
Requesting Provider: Dr. Hendrix
Performing Provider: Dr. Waller/ES Barboza
Reason for Consultation: OB positive stool
Medical History
Chief Complaint / HPI
Chief Complaint: unresponsive
History of Present Illness:
83-year-old female with history of insulin-dependent diabetes, hypertension, CKD 3/4, GERD, gout, CHF, iron deficiency anemia on chronic iron, baseline hemoglobin in 8 range, peripheral vascular disease status post bilateral lower extremity stents
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 ([facility])
who was traveling to visit family when she was driving in the car. They tried to get her out of the car and walk to the door to visit relatives. The patient was confused and unresponsive. She was found to have a blood sugar of 30s. She was
brought to the hospital. She was found to have a UTI. She is being treated for the same. Overnight she had a bowel movement which was dark, this was tested and was positive for occult blood. We are asked to evaluate for the same. I did speak to
the patient as well as her daughter. Casandra, . The patient states that she has no chronic GI issues. She is eating and drinking without any difficulty. She states that her stools have been dark ever since starting iron. I spoke to
her daughter who confirms that she does have a history of iron deficiency that has been going on for the past year. The patient does have multiple areas of ecchymosis all over her arms. She does take aspirin 81 mg daily. She did come off of
Plavix 1 month ago after being on it for 6 months for peripheral vascular disease and stenting. She does not take any other NSAIDs for her history of CKD stage III�4. The patient does not wish to go on dialysis. Her last colonoscopy was
approximately 3 to 4 years ago. This was performed for routine purposes. She takes omeprazole daily for GERD but has no complaints. Her reflux is under control. She eats well at home and her daughter states that she actually eats 'too well'. We
discussed the fact that she did have the presence of occult blood seen within the stool that was tested. Given the fact that her hemoglobin is at her baseline they wish to follow-up with PCP/GI where they live in the [facility]. There is no signs of
active bleeding. If there is then we could discuss this further. The patient denies any fevers, chills, nausea, vomiting, multiple episodes of loose black stools, hematochezia, dysphagia or odynophagia. She denies any early satiety or
unintentional weight loss.
Past Medical History
Past Medical History: Other (Insulin-dependent diabetes, hypertension, CKD 3/4, GERD, gout, CHF, iron deficiency anemia, peripheral vascular disease, hyperlipidemia, necrotizing pancreatitis, UTI)
Past Surgical History: Other (Partial pancreatectomy, toe amputation, cholecystectomy, bilateral peripheral vascular stents)
Social History
Tobacco: Former Smoker (Quit at age 28)
Alcohol: None
Drug: None
Living: With Family
Family History
Family History: Other (No family history of gastrointestinal malignancy, IBD, pancreatic disease or liver disease)
Allergies / Home Medications
Allergy/AdvReac Type Severity Reaction Status Date / Time
No Known Allergies Allergy Verified 04/27/24 14:53
�Medication �Instructions �Recorded
allopurinol 100 mg tablet 100 mg PO DAILY 04/27/24
amlodipine 10 mg tablet (Norvasc) 10 mg PO DAILY 04/27/24
aspirin 81 mg tablet,delayed 81 mg PO DAILY 04/27/24
release
bumetanide 1 mg tablet 1 mg PO BID 04/27/24
empagliflozin 10 mg tablet 10 mg PO DAILY 04/27/24
(Jardiance)
ezetimibe 10 mg tablet (Zetia) 10 mg PO DAILY 04/27/24
fenofibrate nanocrystallized 145 145 mg PO DAILY 04/27/24
mg tablet
ferrous sulfate 325 mg (65 mg 325 mg PO DAILY 04/27/24
iron) tablet
insulin glargine 100 unit/mL (3 0 unit SC HS 04/27/24
mL) subcutaneous pen (Lantus
Solostar U-100 Insulin)
insulin glulisine U-100 100 12 sliding scale dose SC AC 04/27/24
unit/mL subcutaneous pen (Apidra
SoloStar U-100 Insulin)
lisinopril 30 mg tablet 30 mg PO DAILY 04/27/24
omeprazole 20 mg tablet,delayed 20 mg PO DAILY 04/27/24
release
pravastatin 10 mg tablet 10 mg PO DAILY 04/27/24
Review of Systems
-
All other systems: A 12 pt ROS was Negative except as stated above in HPI
Vital Signs
Temp Pulse Resp BP Pulse Ox
97.6 F 69 16 169/69 100
04/29/24 23:27 04/30/24 07:27 04/30/24 07:27 04/30/24 07:27 04/30/24 07:27
Physical Exam
Exam
General: No Apparent Distress
HEENT: Anicteric
Respiratory: Clear (Anterior)
Cardiac: Regular Rhythm
GI: Soft, Non Tender, Non Distended and Normal Bowel Sounds
Rectal: Other (Stool OB positive per RN stool specimen 04/29/2024)
Skin: Warm
Neuro: AO x 3
Psych: Calm
Results
WBC 5.1 10^3/uL (4.8-10.8) 04/30/24 07:44
Hgb 8.9 g/dL (12.0-16.0) L 04/30/24 07:44
Hct 28.1 % (37.0-47.0) L 04/30/24 07:44
MCV 98.9 fL (81.0-99.0) 04/30/24 07:44
Plt Count 136 10^3/uL (130-400) 04/30/24 07:44
Absolute Neuts (auto) 4.2 10^3/uL (1.4-6.5) 04/27/24 15:04
Sodium 139 mmol/L (135-145) 04/30/24 07:44
Potassium 5.6 mmol/L (3.5-5.1) H 04/30/24 07:44
Chloride 112 mmol/L (98-107) H 04/30/24 07:44
Carbon Dioxide 19 mmol/L (22-30) L 04/30/24 07:44
BUN 59 mg/dl (7-17) H 04/30/24 07:44
Creatinine 2.1 mg/dL (0.6-1.0) H 04/30/24 07:44
Calcium 9.1 mg/dl (8.4-10.2) 04/30/24 07:44
Total Bilirubin 0.2 mg/dl (0.2-1.3) 04/27/24 15:04
AST 48 U/L (14-36) H 04/27/24 15:04
ALT 23 U/L (0-35) 04/27/24 15:04
Alkaline Phosphatase 97 U/L (38-126) 04/27/24 15:04
Diagnostic Image Results:
Prior GI Procedures:
EGD: Patient states she never had
Colonoscopy: Per patient 3 to 4 years ago, records unavailable to us
Assessment / Plan
-
83-year-old female with history of insulin-dependent diabetes, hypertension, CKD 3/4, GERD, gout, CHF, iron deficiency anemia on chronic iron, baseline hemoglobin in 8 range, peripheral vascular disease status post bilateral lower extremity stents
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 ([facility])
who was traveling to visit family when she was driving in the car. They tried to get her out of the car and walk to the door to visit relatives. The patient was confused and unresponsive. She was found to have a blood sugar of 30s. She was
brought to the hospital. She was found to have a UTI. She is being treated for the same. Overnight she had a bowel movement which was dark, this was tested and was positive for occult blood. We are asked to evaluate for the same. I did speak to
the patient as well as her daughter. Casandra, . Discussed with daughter. Hemoglobin baseline around 8. Has been anemic for past year. Currently on aspirin 81 mg daily. Came off of Plavix 1 month ago for stenting for peripheral
vascular disease. Stool is positive for occult blood however no overt signs of bleeding. Hemoglobin currently stable 9.0�>8.9�>8.9. Patient without any GI complaints.
Impression:
Stool positive for occult blood, no overt signs of GI bleeding
Chronic iron deficiency anemia, on oral iron
--Current hospitalization for unresponsiveness/UTI/hypoglycemia
CKD 3/4-> per daughter creatinine baseline around 2
Plan:
-Continue PPI daily
-Can trend CBC daily-> call back with any active signs of bleeding
-Hold on any kind of endoscopic intervention unless with active signs of bleeding
-Per wishes of daughter and patient they will follow-up with PCP/GI in their [place] area [place] upon discharge
-
-
Thank you for consultation and allowing me to participate in the patient's care. Please call the integration consultant GI physician during the after hours with any questions or concerns.
--- NOTE | 2024-04-30 11:24 | W.CON.NEPH ---
Consultation
-
Date/Time Consultation Requested: 04/30/2024 10 AM
Date/Time Consultation Performed: 04/30/2024 11 AM
Requesting Provider: Dr. Hendrix
Performing Provider: Dr. Sutherland
Reason for Consultation: YELENA
Medical History
-
Chief Complaint: mental status change
History of Present Illness:
this is a 83-year-old female who has diabetes mellitus type 2 typically controlled with insulin therapy, hypertension controlled on a multidrug regimen, gout controlled on allopurinol therapy. She had been visiting her daughter from [place].
On the drive-in she became more lethargic and unable to be aroused. They called 911 and she was found to be hypoglycemic. She was sent to the emergency room. While here her creatinine was elevated 2.5 now settled at 2.1. She then developed
hyperkalemia as well as metabolic acidosis. Was also found to be hypothyroid with a TSH of 92. She says that she had seen a educational aide recently had and had at least 5 visits for kidney issues but does not recall any details. She has her blood
work typically at a hospital in [place].
Past Medical History
Hypertension
Type 2 diabetes
Gout
CHF
Iron deficiency anemia
GERD
Hyperlipidemia
Part of pancreatitis resected
Toe amputation
Cholecystectomy
CKD
Social History
Tobacco: Non-Smoker
Alcohol: None
Family History
Family History: Not Pertinent
Allergies / Home Medications
Allergy/AdvReac Type Severity Reaction Status Date / Time
No Known Allergies Allergy Verified 04/27/24 14:53
�Medication �Instructions �Recorded �Confirmed �Type
allopurinol 100 mg tablet 100 mg PO DAILY 04/27/24 04/27/24 History
amlodipine 10 mg tablet (Norvasc) 10 mg PO DAILY 04/27/24 04/27/24 History
aspirin 81 mg tablet,delayed 81 mg PO DAILY 04/27/24 04/27/24 History
release
bumetanide 1 mg tablet 1 mg PO BID 04/27/24 04/27/24 History
empagliflozin 10 mg tablet 10 mg PO DAILY 04/27/24 04/27/24 History
(Jardiance)
ezetimibe 10 mg tablet (Zetia) 10 mg PO DAILY 04/27/24 04/27/24 History
fenofibrate nanocrystallized 145 145 mg PO DAILY 04/27/24 04/27/24 History
mg tablet
ferrous sulfate 325 mg (65 mg 325 mg PO DAILY 04/27/24 04/27/24 History
iron) tablet
insulin glargine 100 unit/mL (3 0 unit SC HS 04/27/24 04/27/24 History
mL) subcutaneous pen (Lantus
Solostar U-100 Insulin)
insulin glulisine U-100 100 12 sliding scale dose SC AC 04/27/24 04/27/24 History
unit/mL subcutaneous pen (Apidra
SoloStar U-100 Insulin)
lisinopril 30 mg tablet 30 mg PO DAILY 04/27/24 04/27/24 History
omeprazole 20 mg tablet,delayed 20 mg PO DAILY 04/27/24 04/27/24 History
release
pravastatin 10 mg tablet 10 mg PO DAILY 04/27/24 04/27/24 History
Review of Systems
-
no chest pain or shortness of breath
All other systems: Negative unless noted
Physical Exam
Vital Signs
Vital Signs
Temp Pulse Resp BP Pulse Ox
97.6 F 69 16 169/69 100
04/29/24 23:27 04/30/24 07:27 04/30/24 07:27 04/30/24 07:27 04/30/24 07:27
Lab Results
WBC 5.1 10^3/uL (4.8-10.8) 04/30/24 07:44
RBC 2.84 10^6/uL (4.20-5.40) L 04/30/24 07:44
Hgb 8.9 g/dL (12.0-16.0) L 04/30/24 07:44
Hct 28.1 % (37.0-47.0) L 04/30/24 07:44
Plt Count 136 10^3/uL (130-400) 04/30/24 07:44
Sodium 139 mmol/L (135-145) 04/30/24 07:44
Potassium 5.6 mmol/L (3.5-5.1) H 04/30/24 07:44
Chloride 112 mmol/L (98-107) H 04/30/24 07:44
Carbon Dioxide 19 mmol/L (22-30) L 04/30/24 07:44
BUN 59 mg/dl (7-17) H 04/30/24 07:44
Creatinine 2.1 mg/dL (0.6-1.0) H 04/30/24 07:44
eGFR 22.66 04/30/24 07:44
Glucose 228 mg/dl (70-99) H 04/30/24 07:44
Calcium 9.1 mg/dl (8.4-10.2) 04/30/24 07:44
Albumin 4.1 g/dl (3.5-5.0) 04/27/24 15:04
Laboratory Tests
04/27/24 04/27/24
15:04 16:57
Potassium 4.6
Carbon Dioxide 22
Creatinine 2.5 H
Urine pH 6.0
Ur Specific [place] 1.015
Urine WBC (Reflex) 21-25 A
Urine Bacteria (Reflex) Many A
Hyaline Casts 3-5
Urine Glucose Trace A
Urine Albumin (Reflex) Trace
Physical Exam
Patient is awake alert oriented and in no distress. Mood and affect were pleasant, insight and judgment were good. Pupils are equal round and reactive to light, extraocular movements are intact, sclera were anicteric. Hearing was normal, ears and
nose are intact. Oropharynx was clear. Neck was supple with trachea midline and no thyromegaly. Heart was regular rate and rhythm without rubs. Lower extremities without edema. Lungs were clear to auscultation bilaterally and with normal
excursion. Abdomen was soft, nontender, with normal active bowel sounds, and no hepatosplenomegaly. Skin was without rash and with normal turgor.
Data Reviewed
-
Radiology: Image Personally Visualized and interpreted ( chest x-ray on 04/27/2024 by my reading shows right-sided)
Labs: Labs Reviewed by me
Old Records: Requested
Assessment/Plan
-
assessment
YELENA
CKD, stage unknown
hyperkalemia
metabolic acidosis
diabetes mellitus type 2
heme positive stool
gout
hypothyroidism
CHF
plan
follow BMP
treat potassium medically
for renal ultrasound
treat hypothyroidism
obtain laboratory values, old records from [facility]
oral bicarbonate
[2024-04-30 12:28] LABS: Glucose - Point of Care 299 mg/dl (70-99)
[2024-04-30] MEDS: NOVOLOG FLEXPEN-LOW RESISTANCE 3 UNITS SC (13:29)
--- NOTE | 2024-04-30 13:39 | PN.DE.MGMTRT ---
Insulin Management
- -
04/30/2024 Diabetes Management Consult
Patient admitted 04/27 for hypoglycemia. She is visiting family for the holiday. PMH HTN, diabetes, UTI. Prior to admission was taking 16 units lantus @ hs with novolog or apidra 12 with breakfast and dinner and 4 with lunch using a ss, and
Jardiance 10 mg daily.
A1C on admission 7.3%, cr 2.1, eGFR 22.66
Patient is awake alert and oriented able to discuss diabetes care. She was last to endocrine 3 years ago, she moved to the [facility] 3 years ago and has not seen an endo since.
Will not restart Jardiance as cr is 2.1 and eGFR is 22.66.
Glucose yesterday as high as 403, patient receiving corrective insulin only. Will resume HS lantus 15 units and AC novolog 4 units with low corrective insulin. Glucose pre lunch 299, will give one time dose 4 units novolog with low corrective
insulin. Discussed with patient she should make appointment with endo [facility].
Will follow
Diabetes History
- -
Type of Diabetes: 2 requiring insulin
Pre-Admission Diabetes Regimen
04/30/24
07:44
Creatinine 2.1 H
Lab Results
Hemoglobin A1c 7.3 % (4.0-5.6) H 04/28/24 06:22
Insulin Pump Settings
IP Diabetes Regimen
04/29/24 04/29/24 04/30/24
16:44 21:14 07:23
Glucose
POC Glucose 224 H 259 H 237 H
04/30/24 04/30/24
07:44 12:26
Glucose 228 H
POC Glucose 299 H
Patient Education
[2024-04-30] MEDS: NOVOLOG FLEXPEN 4 UNITS SC ×2 (13:41→17:22)
[2024-04-30 14:36] LABS: Free T4 0.37 ng/dl (0.78-2.19)
[2024-04-30 15:19] VITALS: BP 141/64
[2024-04-30] MEDS: NSS 1000 IV (17:14)
[2024-04-30 17:22] LABS: Glucose - Point of Care 183 mg/dl (70-99)
[2024-04-30] MEDS: NOVOLOG FLEXPEN-LOW RESISTANCE 1 UNITS SC (17:22)
[2024-04-30] MEDS: STERILE WATER FOR INJECTION 10 ML IV (17:23)
[2024-04-30] MEDS: ROCEPHIN 1000 MG IV (17:23)
--- NOTE | 2024-04-30 18:05 | PTCARENOTE ---
Place on gonzales hugger per orders. Unable to obtain temp. orally. Rectally temp was 95.4. Plan of care ongoing.
[2024-04-30 21:32] LABS: Glucose - Point of Care 203 mg/dl (70-99)
[2024-04-30] MEDS: LANTUS 0.15 UNITS SC (22:07)
[2024-04-30 23:15] VITALS: BP 166/64
[2024-05-01] MEDS: SYNTHROID 75 MCG PO (04:55)
[2024-05-01 05:04] VITALS: BMI 40.3
[2024-05-01] MEDS: LOKELMA 10 GRAM PO ×3 (06:57→17:18)
[2024-05-01 07:14] LABS: Hematocrit 26.7 % (37.0-47.0); Hemoglobin 8.3 g/dL (12.0-16.0); Mean Corp Hgb Conc. 31.1 g/dL (33.0-37.0); Mean Corpuscular Hgb 30.9 pg (27.0-31.0); Mean Corpuscular Volume 99.3 fL (81.0-99.0); Mean Platelet Volume 10.5 fL (7.4-10.4); Platelet Count 140 10^3/uL (130-400); Red Blood Cell Count 2.69 10^6/uL (4.20-5.40); Red Cell Dist. Width 16.3 % (11.5-14.5); White Blood Cell Count 4.7 10^3/uL (4.8-10.8)
[2024-05-01 07:15] VITALS: BP 138/58
[2024-05-01 07:19] LABS: Glucose - Point of Care 97 mg/dl (70-99)
[2024-05-01 07:20] LABS: Blood Urea Nitrogen 54 mg/dl (7-17); Carbon Dioxide 18 mmol/L (22-30); Chloride 113 mmol/L (98-107); Estimated Creatinine Clearance 21 ml/min; Glucose 106 mg/dl (70-99); Potassium 5.5 mmol/L (3.5-5.1); Sodium 140 mmol/L (135-145); eGFR 27.27
[2024-05-01 08:15] VITALS: BP 138/58
[2024-05-01] MEDS: NOVOLOG FLEXPEN-LOW RESISTANCE SC ×3 (09:10→16:50)
[2024-05-01] MEDS: NOVOLOG FLEXPEN 4 UNITS SC ×3 (09:13→17:18)
[2024-05-01] MEDS: TRICOR 145 MG PO (09:13)
[2024-05-01] MEDS: ZETIA 10 MG PO (09:14)
[2024-05-01] MEDS: ASPIR LOW (ENTERIC COATED) 81 MG PO (09:14)
[2024-05-01] MEDS: PRAVACHOL 10 MG PO (09:14)
[2024-05-01] MEDS: PROTONIX 40 MG PO (09:14)
[2024-05-01] MEDS: FEOSOL 325 MG PO (09:14)
[2024-05-01] MEDS: NORVASC 10 MG PO (09:14)
[2024-05-01] MEDS: TYLENOL 650 MG PO ×2 (09:20→21:48)
--- NOTE | 2024-05-01 10:57 | W.PN.NEPH.PH ---
Today's Communication / Plan
-
follow BMP
Assessment/Plan
-
assessment
YELENA
CKD, stage unknown
hyperkalemia
metabolic acidosis
diabetes mellitus type 2
heme positive stool
gout
hypothyroidism
CHF
Plan
follow BMP
cap IVF
po bicarb
await old records
on synthroid
lokelma course
-
-
Date of Service: May 01, 2024
CC / HPI / ROS
-
Chief Complaint:
YELENA
History of Present Illness:
YELENA/Cr down to 1.8
K slightly better at 5.5
acidosis persists
sugars stable
BP stable
Review of Systems:
no CP/SOB
Labs
-
Labs:
WBC 4.7 10^3/uL (4.8-10.8) L 05/01/24 06:18
RBC 2.69 10^6/uL (4.20-5.40) L 05/01/24 06:18
Hgb 8.3 g/dL (12.0-16.0) L 05/01/24 06:18
Hct 26.7 % (37.0-47.0) L 05/01/24 06:18
Plt Count 140 10^3/uL (130-400) 05/01/24 06:18
Sodium 140 mmol/L (135-145) 05/01/24 06:18
Potassium 5.5 mmol/L (3.5-5.1) H 05/01/24 06:18
Chloride 113 mmol/L (98-107) H 05/01/24 06:18
Carbon Dioxide 18 mmol/L (22-30) L 05/01/24 06:18
BUN 54 mg/dl (7-17) H 05/01/24 06:18
Creatinine 1.8 mg/dL (0.6-1.0) H 05/01/24 06:18
eGFR 27.27 05/01/24 06:18
Glucose 106 mg/dl (70-99) H 05/01/24 06:18
Calcium 9.0 mg/dl (8.4-10.2) 05/01/24 06:18
Albumin 4.1 g/dl (3.5-5.0) 04/27/24 15:04
Physical Exam
-
Vital Signs:
Vital Signs
Temp Pulse Resp BP Pulse Ox
97.5 F 62 16 138/58 98
05/01/24 07:15 05/01/24 07:15 05/01/24 07:15 05/01/24 07:15 05/01/24 07:15
Cardiovascular:: Regular rate and rhythm
Respiratory:: Bilateral: Coarse
Lung Excursion:: Normal
Abdomen:: Nontender and Soft
Bowel Sounds:: Normal
Extremity Edema:: +1: Bilateral:
[2024-05-01 12:10] LABS: Glucose - Point of Care 126 mg/dl (70-99)
--- NOTE | 2024-05-01 12:16 | W.PN.HOSP.TC ---
Today's Communication/Plan
-
see bold
Assessment / Plan
Assessment / Plan
Gen: NAD, Awake and alert
Eyes: EOMI, PERRLA, no scleral icterus.
Neck: supple.
CV: RRR, +S1/S2, no m/r/g.
Resp: CTAB, no rales, wheezes, or rhonchi.
Abd: +BS, soft, NT, ND
Skin: No rashes.
Neuro: CN 2-12 intact, non-focal.
Psych: Normal mood and affect.
04/27/24 16:57 Urine Urine Culture - Final
Klebsiella pneumoniae
CXR: R perihilar/lower lobe opacity which may represent pneumonia or atelectasis.
Acute metabolic encephalopathy:
-likely due to YELENA, hypoglycemia, and acute UTI
-cont IV ceftriaxone for UCx with Klebsiella
Heme POS stool:
-heparin held O/N 04/29/24-04/30/24 (was bruising as well)
-Hb stable
-pt is on PO Fe but nursing reported very black stool. GI saw in c/s, no further inpt w/u at this time.
DM2:
-a1c 7.3%
-Jardiance/Lantus were held with symptomatic hypoglycemia
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
-SSI/accuchecks/diabetic diet
YELENA:
-baseline Cr unknown
-cont IVFs
-Cr continues to improve
-renal U/S without hydronephrosis
-renal following
-hyperkalemia, cont Lokelma
Other problems:
Chronic anemia: Hb stable, Heme POS, cont PO Fe, see above
Bacterial PNA has been ruled out with NEG procalcitonin
Gout: cont Allopurinol
Essential hypertension: Cont Norvasc, holding ACEi with YELENA
GERD: cont PPI
Chronic CHF (unknown type): Bumex on hold with YELENA
Hyperlipidemia: Cont Zetia/fenofibrate
Morbid obesity due to excess calories
FULL/SCDs
Anticipated Discharge: 24 - 48 hours
Subjective/Interval History
-
Date of Service: May 01, 2024
Denies CP/SOB/abd pain but states she just doesn't feel well today.
Objective Data
-
Labs:
Laboratory Results
05/01/24
06:18
WBC 4.7 L
Hgb 8.3 L
Hct 26.7 L
Plt Count 140
Sodium 140
Potassium 5.5 H
Chloride 113 H
Carbon Dioxide 18 L
BUN 54 H
Creatinine 1.8 H
Glucose 106 H
Calcium 9.0
Vital Signs:
Vital Signs
Temp Pulse Resp BP Pulse Ox
97.5 F 62 16 138/58 98
05/01/24 07:15 05/01/24 07:15 05/01/24 07:15 05/01/24 07:15 05/01/24 07:15
I&O
04/30/24 05/01/24 05/02/24
06:59 06:59 06:59
Intake Total 720 / 720 240 / 240
Output Total 200 / 200
Balance 520 / 520 240 / 240
[2024-05-01] MEDS: SODIUM BICARBONATE 650 MG PO ×2 (12:37→20:06)
[2024-05-01] MEDS: NSS 1000 IV (13:51)
[2024-05-01 15:15] VITALS: BP 136/59
[2024-05-01 16:29] VITALS: BP 136/59
[2024-05-01 16:45] LABS: Glucose - Point of Care 141 mg/dl (70-99)
[2024-05-01] MEDS: ROCEPHIN 1000 MG IV (17:10)
[2024-05-01] MEDS: STERILE WATER FOR INJECTION 10 ML IV (17:10)
[2024-05-01 21:11] LABS: Glucose - Point of Care 123 mg/dl (70-99)
[2024-05-01] MEDS: LANTUS 0.15 UNITS SC (21:49)
[2024-05-01 23:20] VITALS: BP 138/56
[2024-05-02] MEDS: NSS 1000 IV (05:33)
[2024-05-02] MEDS: SYNTHROID 75 MCG PO (05:35)
[2024-05-02 06:00] VITALS: BMI 40.8
[2024-05-02 07:03] LABS: Blood Urea Nitrogen 48 mg/dl (7-17); Calcium 8.7 mg/dl (8.4-10.2); Carbon Dioxide 18 mmol/L (22-30); Chloride 113 mmol/L (98-107); Estimated Creatinine Clearance 23 ml/min; Glucose 45 mg/dl (70-99); Potassium 5.1 mmol/L (3.5-5.1); Sodium 141 mmol/L (135-145); eGFR 31.41
[2024-05-02 07:24] VITALS: BP 146/65
[2024-05-02 07:25] LABS: Glucose - Point of Care 70 mg/dl (70-99)
[2024-05-02 07:47] LABS: Glucose - Point of Care 102 mg/dl (70-99)
[2024-05-02] MEDS: ASPIR LOW (ENTERIC COATED) 81 MG PO (08:55)
[2024-05-02] MEDS: ZETIA 10 MG PO (08:55)
[2024-05-02] MEDS: PRAVACHOL 10 MG PO (08:55)
[2024-05-02] MEDS: TRICOR 145 MG PO (08:55)
[2024-05-02] MEDS: DESENEX/MITRAZOL/ZEASORB 1 APPLIC TOPICAL ×2 (08:55→21:52)
[2024-05-02] MEDS: FEOSOL 325 MG PO (08:56)
[2024-05-02] MEDS: PROTONIX 40 MG PO (08:56)
[2024-05-02] MEDS: ZYLOPRIM 50 MG PO (08:56)
[2024-05-02] MEDS: SODIUM BICARBONATE 650 MG PO ×2 (08:56→21:51)
[2024-05-02] MEDS: NORVASC 10 MG PO (08:56)
[2024-05-02] MEDS: NOVOLOG FLEXPEN-LOW RESISTANCE SC (08:57)
[2024-05-02] MEDS: NOVOLOG FLEXPEN 4 UNITS SC (08:58)
--- NOTE | 2024-05-02 10:11 | W.PN.HOSP.TC ---
Today's Communication/Plan
-
see bold
Assessment / Plan
Assessment / Plan
Gen: NAD, Awake and alert
Eyes: EOMI, PERRLA, no scleral icterus.
Neck: supple.
CV: remains RRR, +S1/S2, no m/r/g.
Resp: remains CTAB, no rales, wheezes, or rhonchi.
Abd: +BS, soft, NT, ND
Skin: No rashes. trace B/L LE edema
Neuro: CN 2-12 intact, non-focal.
Psych: Normal mood and affect.
04/27/24 16:57 Urine Urine Culture - Final
Klebsiella pneumoniae
CXR: R perihilar/lower lobe opacity which may represent pneumonia or atelectasis.
Acute metabolic encephalopathy:
-likely due to YELENA, hypoglycemia, and acute UTI
-cont IV ceftriaxone for UCx with Klebsiella to complete 5 days
Heme POS stool:
-heparin held O/N 04/29/24-04/30/24 (was bruising as well)
-Hb stable
-pt is on PO Fe but nursing reported very black stool. GI saw in c/s, no further inpt w/u at this time.
DM2:
-a1c 7.3%
-Jardiance/Lantus were held with symptomatic hypoglycemia
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 Hypoglycemic this AM. Decrease Lantus to 6U HS and stop premeal insulin.
-SSI/accuchecks/diabetic diet
YELENA:
-baseline Cr unknown
-cont IVFs
-Cr continues to improve
-renal U/S without hydronephrosis
-renal following
-hyperkalemia, resolved with a course of Lokelma
Other problems:
Chronic anemia: Hb stable, Heme POS, cont PO Fe, see above
Bacterial PNA has been ruled out with NEG procalcitonin
Gout: cont Allopurinol
Essential hypertension: Cont Norvasc, holding ACEi with YELENA
GERD: cont PPI
Chronic CHF (unknown type): Bumex on hold with YELENA
Hyperlipidemia: Cont Zetia/fenofibrate
Morbid obesity due to excess calories
FULL/SCDs
Anticipated Discharge: 24 - 48 hours
Subjective/Interval History
-
Date of Service: May 02, 2024
No new complaints. Denies CP/SOB at rest. States she has FRANCOIS which is chronic and due to 'back pain and leg pain.'
Objective Data
-
Labs:
Laboratory Results
05/02/24
05:54
Sodium 141
Potassium 5.1
Chloride 113 H
Carbon Dioxide 18 L
BUN 48 H
Creatinine 1.6 H
Glucose 45 L*
Calcium 8.7
Vital Signs:
Vital Signs
Temp Pulse Resp BP Pulse Ox
97.2 F 70 20 146/65 100
05/02/24 07:24 05/02/24 08:56 05/02/24 07:24 05/02/24 08:56 05/02/24 07:24
I&O
05/01/24 05/02/24 05/03/24
06:59 06:59 06:59
Intake Total 240 / 240 240 / 240
Balance 240 / 240 240 / 240
--- NOTE | 2024-05-02 11:52 | W.PN.NEPH.PH ---
Today's Communication / Plan
-
cap IVF
Assessment/Plan
-
assessment
YELENA
CKD, stage unknown
hyperkalemia
metabolic acidosis
diabetes mellitus type 2
heme positive stool
gout
hypothyroidism
CHF
Plan
follow BMP
cap IVF
po bicarb still
await old records
on synthroid
off bumex for now
-
-
Date of Service: May 02, 2024
CC / HPI / ROS
-
Chief Complaint:
YELENA
History of Present Illness:
YELENA/Cr down to 1.6
K normal
acidosis persists 18
sugars stable
BP stable
Review of Systems:
no CP/SOB
Labs
-
Labs:
WBC 4.7 10^3/uL (4.8-10.8) L 05/01/24 06:18
RBC 2.69 10^6/uL (4.20-5.40) L 05/01/24 06:18
Hgb 8.3 g/dL (12.0-16.0) L 05/01/24 06:18
Hct 26.7 % (37.0-47.0) L 05/01/24 06:18
Plt Count 140 10^3/uL (130-400) 05/01/24 06:18
Sodium 141 mmol/L (135-145) 05/02/24 05:54
Potassium 5.1 mmol/L (3.5-5.1) 05/02/24 05:54
Chloride 113 mmol/L (98-107) H 05/02/24 05:54
Carbon Dioxide 18 mmol/L (22-30) L 05/02/24 05:54
BUN 48 mg/dl (7-17) H 05/02/24 05:54
Creatinine 1.6 mg/dL (0.6-1.0) H 05/02/24 05:54
eGFR 31.41 05/02/24 05:54
Glucose 45 mg/dl (70-99) L* 05/02/24 05:54
Calcium 8.7 mg/dl (8.4-10.2) 05/02/24 05:54
Albumin 4.1 g/dl (3.5-5.0) 04/27/24 15:04
Physical Exam
-
Vital Signs:
Vital Signs
Temp Pulse Resp BP Pulse Ox
97.2 F 70 20 146/65 100
05/02/24 07:24 05/02/24 08:56 05/02/24 07:24 05/02/24 08:56 05/02/24 09:00
Cardiovascular:: Regular rate and rhythm
Respiratory:: Bilateral: Coarse
Lung Excursion:: Normal
Abdomen:: Nontender and Soft
Bowel Sounds:: Normal
Extremity Edema:: None: Bilateral:
[2024-05-02] MEDS: NOVOLOG FLEXPEN-LOW RESISTANCE 1 UNITS SC (12:01)
[2024-05-02 12:02] LABS: Glucose - Point of Care 171 mg/dl (70-99)
--- NOTE | 2024-05-02 13:34 | GLUCOSE ---
0710 Pt noted to have a Glucose result of 45 on BMP this am. Juice given to patient. Accu then 70 at 0720. Juice given to patient. Recheck Accu chek at 07:46 - BS-102. Dr. Hendrix made aware. Cont to assess patient status.
BACKGROUND:
ASSESSMENT:
RECOMMENDATION:
[2024-05-02 15:10] VITALS: BP 173/66
[2024-05-02 16:01] LABS: Glucose - Point of Care 240 mg/dl (70-99)
[2024-05-02] MEDS: NOVOLOG FLEXPEN-LOW RESISTANCE 2 UNITS SC (16:52)
[2024-05-02] MEDS: ROCEPHIN 1000 MG IV (18:08)
[2024-05-02] MEDS: STERILE WATER FOR INJECTION 10 ML IV (18:10)
--- NOTE | 2024-05-02 19:30 | PTCARENOTE ---
Received patient this am AAOx3. Pt forgetful at times. Pt OOB to bedside commode with assistance x1 multiple times. Tolerated diet well. Offered no complaints. Made patient comfortable. Cont to assess patient status.
[2024-05-02 21:13] LABS: Glucose - Point of Care 349 mg/dl (70-99)
[2024-05-02] MEDS: LANTUS 0.06 UNITS SC (21:51)
[2024-05-02] MEDS: TYLENOL 650 MG PO (21:51)
[2024-05-02 23:28] VITALS: BP 162/66
[2024-05-03 02:57] LABS: Glucose - Point of Care 241 mg/dl (70-99)
[2024-05-03] MEDS: SYNTHROID 75 MCG PO (05:04)
[2024-05-03 06:00] VITALS: BMI 39.5
--- NOTE | 2024-05-03 07:12 | PN.DE.MGMTRT ---
Insulin Management
- -
05/03/2024 Diabetes Management Consult
Patient admitted 04/27 for hypoglycemia. She is visiting family for the holiday. PMH HTN, diabetes, UTI. Prior to admission was taking 16 units lantus @ hs with novolog or apidra 12 with breakfast and dinner and 4 with lunch using a ss, and
Jardiance 10 mg daily.
A1C on admission 7.3%, cr 2.1, eGFR 22.66
Patient is awake alert and oriented able to discuss diabetes care. She was last to endocrine 3 years ago, she moved to the [facility] 3 years ago and has not seen an endo since.
Ct improved 1.6, eGFR 31.41. Patient had hypoglycemia 05/02 fasting, lantus reduced to 6 units, ac novolog stopped. Glucose has trended up to 349 @ hs. 3AM glucose today 241. Will restart AC novolog at 4 units with low corrective and continue
lantus 6 units @ hs.
Diabetes History
- -
Type of Diabetes: 2 requiring insulin
Pre-Admission Diabetes Regimen
Lab Results
Hemoglobin A1c 7.3 % (4.0-5.6) H 04/28/24 06:22
Insulin Pump Settings
IP Diabetes Regimen
05/02/24 05/02/24 05/02/24
07:23 07:46 11:59
POC Glucose 70 102 H 171 H
05/02/24 05/02/24 05/03/24
16:00 21:11 02:55
POC Glucose 240 H 349 H 241 H
Meal type: Dinner
Meal type: Lunch
Meal type: Breakfast
Amount consumed: 100%
Amount consumed: 100%
Amount consumed: 100%
Patient Education
[2024-05-03 07:42] VITALS: BP 173/70
[2024-05-03 07:53] LABS: Glucose - Point of Care 148 mg/dl (70-99)
[2024-05-03] MEDS: NOVOLOG FLEXPEN-LOW RESISTANCE SC (08:04)
[2024-05-03] MEDS: ZETIA 10 MG PO (08:06)
[2024-05-03] MEDS: ASPIR LOW (ENTERIC COATED) 81 MG PO (08:06)
[2024-05-03] MEDS: PRAVACHOL 10 MG PO (08:06)
[2024-05-03] MEDS: TRICOR 145 MG PO (08:06)
[2024-05-03] MEDS: FEOSOL 325 MG PO (08:07)
[2024-05-03] MEDS: SODIUM BICARBONATE 650 MG PO ×3 (08:07→21:24)
[2024-05-03] MEDS: NORVASC 10 MG PO (08:07)
[2024-05-03] MEDS: NOVOLOG FLEXPEN 4 UNITS SC ×3 (08:09→17:30)
[2024-05-03] MEDS: DESENEX/MITRAZOL/ZEASORB 1 APPLIC TOPICAL ×2 (08:11→21:19)
[2024-05-03] MEDS: PROTONIX 40 MG PO (08:11)
[2024-05-03] MEDS: TYLENOL 650 MG PO ×3 (08:17→22:35)
[2024-05-03 09:29] LABS: Hematocrit 28.8 % (37.0-47.0); Hemoglobin 9.1 g/dL (12.0-16.0); Mean Corp Hgb Conc. 31.6 g/dL (33.0-37.0); Mean Corpuscular Hgb 30.8 pg (27.0-31.0); Mean Corpuscular Volume 97.6 fL (81.0-99.0); Mean Platelet Volume 10.4 fL (7.4-10.4); Platelet Count 148 10^3/uL (130-400); Red Blood Cell Count 2.95 10^6/uL (4.20-5.40); Red Cell Dist. Width 16.2 % (11.5-14.5); White Blood Cell Count 5.6 10^3/uL (4.8-10.8)
[2024-05-03 09:32] VITALS: BP 152/68; PULSE 68; O2SAT 98
[2024-05-03 10:18] LABS: Blood Urea Nitrogen 41 mg/dl (7-17); Calcium 9.1 mg/dl (8.4-10.2); Carbon Dioxide 18 mmol/L (22-30); Chloride 111 mmol/L (98-107); Estimated Creatinine Clearance 26 ml/min; Glucose 147 mg/dl (70-99); Potassium 6.2 mmol/L (3.5-5.1); Sodium 138 mmol/L (135-145); eGFR 36.87
[2024-05-03] MEDS: SODIUM BICARBONATE 50 MEQ IV (10:41)
[2024-05-03] MEDS: LOKELMA 10 GRAM PO ×3 (10:41→17:30)
--- NOTE | 2024-05-03 10:49 | W.PN.NEPH.PH ---
Today's Communication / Plan
-
Lokelma provided hyperkalemia
Maintain sodium bicarbonate for underlying metabolic acidosis
Creatinine continues to improve to 1.4
Escalate sodium bicarbonate to 650 mg 3 times daily
Assessment/Plan
-
assessment
YELENA
CKD, stage unknown
UTI
hyperkalemia
metabolic acidosis
diabetes mellitus type 2
heme positive stool
gout
hypothyroidism
CHF
Plan
follow BMP
Creatinine continues to improve to 1.4 urine output not recorded
Hyperkalemic this a.m. with potassium up to 6.2, holding jamal
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
Lokelma provided
po bicarb still be provided for metabolic acidosis, will increase to TID
await old records
on synthroid
off bumex for now
-
-
Date of Service: May 03, 2024
CC / HPI / ROS
-
Chief Complaint:
YELENA
History of Present Illness:
YELENA/Cr down to 1.4
K elevated today to 6.2
acidosis persists 18
sugars stable
BP stable
Review of Systems:
no CP/SOB
Urine output not recorded
Weight down
Labs
-
Labs:
WBC 5.6 10^3/uL (4.8-10.8) 05/03/24 08:39
RBC 2.95 10^6/uL (4.20-5.40) L 05/03/24 08:39
Hgb 9.1 g/dL (12.0-16.0) L 05/03/24 08:39
Hct 28.8 % (37.0-47.0) L 05/03/24 08:39
Plt Count 148 10^3/uL (130-400) 05/03/24 08:39
Sodium 138 mmol/L (135-145) 05/03/24 08:39
Chloride 111 mmol/L (98-107) H 05/03/24 08:39
Carbon Dioxide 18 mmol/L (22-30) L 05/03/24 08:39
BUN 41 mg/dl (7-17) H 05/03/24 08:39
Creatinine 1.4 mg/dL (0.6-1.0) H 05/03/24 08:39
eGFR 36.87 05/03/24 08:39
Glucose 147 mg/dl (70-99) H 05/03/24 08:39
Calcium 9.1 mg/dl (8.4-10.2) 05/03/24 08:39
Albumin 4.1 g/dl (3.5-5.0) 04/27/24 15:04
Physical Exam
-
Vital Signs:
Vital Signs
Temp Pulse Resp BP Pulse Ox
98 F 69 18 173/70 100
05/03/24 07:42 05/03/24 08:07 05/03/24 07:42 05/03/24 08:07 05/03/24 07:42
Cardiovascular:: Regular rate and rhythm
Respiratory:: Bilateral: Coarse
Lung Excursion:: Normal
Abdomen:: Nontender and Soft
Bowel Sounds:: Normal
Extremity Edema:: +1: Bilateral:
Dawson Catheter: No
[2024-05-03 12:05] LABS: Glucose - Point of Care 179 mg/dl (70-99)
--- NOTE | 2024-05-03 12:08 | CM ---
Patient seen bedside.
Patient lives with daughter in an in law suite in [place], plan is to return there.
Patient currently without a PCP.
Patient has been seen [facility] in the past.
TC to [facility] P#[phone], spoke with A[facility]
Patient is current with [facility]. Will fax [facility] referral
PCP: Office # [phone] (attempted to reach for MD name, answering service, will try back later)
Plan:home with [facility]
please call day of discharge p# [phone]
Fax discharge instructions to fax# [phone]
[2024-05-03] MEDS: NOVOLOG FLEXPEN-LOW RESISTANCE 1 UNITS SC (12:27)
--- NOTE | 2024-05-03 12:44 | W.PN.HOSP.TC ---
Today's Communication/Plan
-
Monitor vitals
See plan
Potassium elevated today, start Lokelma. Push of bicarb.
Also on p.o. bicarb, nephrology following
PT/OT
Assessment / Plan
Assessment / Plan
Gen: NAD, Awake and alert
Eyes: EOMI, PERRLA, no scleral icterus.
Neck: supple.
CV: remains RRR, +S1/S2, no m/r/g.
Resp: remains CTAB, no rales, wheezes, or rhonchi.
Abd: +BS, soft, NT, ND
Skin: No rashes. trace B/L LE edema
Neuro: CN 2-12 intact, non-focal.
Psych: Normal mood and affect.
04/27/24 16:57 Urine Urine Culture - Final
Klebsiella pneumoniae
CXR: R perihilar/lower lobe opacity which may represent pneumonia or atelectasis.
Acute metabolic encephalopathy:
-likely due to YELENA, hypoglycemia, and acute UTI
-cont antibiotics for UTI
Heme POS stool:
-heparin held O/N 04/29/24-04/30/24 (was bruising as well)
-Hb stable
-pt is on PO Fe but nursing reported very black stool. GI saw in c/s, no further inpt w/u at this time.
DM2:
-a1c 7.3%
-Jardiance/Lantus were held with symptomatic hypoglycemia
-Pt seen by diabetes DIALYSIS CLINICAL MANAGER and was placed on Lantus 15U HS. restart mealtime insulin
-SSI/accuchecks/diabetic diet
YELENA on CKD, nagi unknown
-baseline Cr unknown
-cont IVFs
-Cr continues to improve
-renal U/S without hydronephrosis
-renal following
-hyperkalemia,; start Lokelma, push of IV bicarb.
Other problems:
Chronic anemia: Hb stable, Heme POS, cont PO Fe, see above
Bacterial PNA has been ruled out with NEG procalcitonin
Gout: cont Allopurinol
Essential hypertension: Cont Norvasc, holding ACEi with YELENA
GERD: cont PPI
Chronic CHF (unknown type): Bumex on hold with YELENA
Hyperlipidemia: Cont Zetia/fenofibrate
Morbid obesity due to excess calories
FULL/SCDs
I spent a total of 52 minutes with the patient or on the floor. More than 50% of this time involved counseling and coordination of care.
Anticipated Discharge: 24 - 48 hours
Subjective/Interval History
-
Date of Service: May 03, 2024
denies pain
Objective Data
-
Labs:
Laboratory Results
05/03/24 05/03/24
08:39 14:00
WBC 5.6
Hgb 9.1 L
Hct 28.8 L
Plt Count 148
Sodium 138
Potassium 6.2 H* Pending
Chloride 111 H
Carbon Dioxide 18 L
BUN 41 H
Creatinine 1.4 H
Glucose 147 H
Calcium 9.1
Vital Signs:
Vital Signs
Temp Pulse Resp BP Pulse Ox
98 F 69 18 173/70 98
05/03/24 07:42 05/03/24 08:07 05/03/24 07:42 05/03/24 08:07 05/03/24 11:08
I&O
05/02/24 05/03/24 05/04/24
06:59 06:59 06:59
Intake Total 240 / 240 720 / 720
Balance 240 / 240 720 / 720
[2024-05-03 14:53] LABS: Potassium 6.2 mmol/L (3.5-5.1)
[2024-05-03 15:35] VITALS: BP 175/73
[2024-05-03 16:14] LABS: Glucose - Point of Care 228 mg/dl (70-99)
[2024-05-03] MEDS: NOVOLOG FLEXPEN-LOW RESISTANCE 2 UNITS SC (17:29)
[2024-05-03] MEDS: ROCEPHIN 1000 MG IV (17:30)
[2024-05-03] MEDS: STERILE WATER FOR INJECTION 10 ML IV (17:30)
[2024-05-03 21:13] LABS: Glucose - Point of Care 191 mg/dl (70-99)
[2024-05-03] MEDS: LANTUS 0.06 UNITS SC (21:25)
[2024-05-03 22:28] LABS: Potassium 4.9 mmol/L (3.5-5.1)
[2024-05-03 23:50] VITALS: BP 161/70
[2024-05-04] MEDS: APRESOLINE 5 MG IV (01:01)
[2024-05-04 03:15] VITALS: BP 144/61
[2024-05-04] MEDS: SYNTHROID 75 MCG PO (05:06)
[2024-05-04] MEDS: TYLENOL 650 MG PO ×3 (05:06→22:04)
[2024-05-04] MEDS: LOKELMA 10 GRAM PO (05:07)
[2024-05-04 06:00] VITALS: BMI 41.1
[2024-05-04 07:21] LABS: Glucose - Point of Care 55 mg/dl (70-99)
[2024-05-04 07:30] VITALS: BP 154/68
[2024-05-04 07:43] LABS: Glucose - Point of Care 64 mg/dl (70-99)
--- NOTE | 2024-05-04 08:02 | PN.DE.MGMTRT ---
Insulin Management
- -
05/04/2024 Diabetes Management Consult
Patient admitted 04/27 for hypoglycemia. She is visiting family for the holiday. PMH HTN, diabetes, UTI. Prior to admission was taking 16 units lantus @ hs with novolog or apidra 12 with breakfast and dinner and 4 with lunch using a ss, and
Jardiance 10 mg daily.
A1C on admission 7.3%, cr 2.1, eGFR 22.66
Patient is awake alert and oriented able to discuss diabetes care. She was last to endocrine 3 years ago, she moved to the [facility] 3 years ago and has not seen an endo since.
Cr today1.7, eGFR 29.21. Patient had hypoglycemia 05/02 fasting, lantus reduced to 6 units, ac novolog stopped. Glucose has trended up to 349 @ hs. 3AM glucose 05/03 241. AC novolog at 4 units with low corrective restarted 05/03. Pre meal
glucose 05/03 148 to 228 (pre dinner) HS glucose 191. HS lantus 6 units administered. 7AM glucose 55. Will further reduce HS lantus to 4 units. Patient received 3 units novolog with breakfast, Pre lunch glucose 106 will change AC novolog to 3
units.
Will follow
Diabetes History
- -
Type of Diabetes: 2 requiring insulin
Pre-Admission Diabetes Regimen
05/03/24
08:39
Creatinine 1.4 H
Lab Results
Hemoglobin A1c 7.3 % (4.0-5.6) H 04/28/24 06:22
Insulin Pump Settings
IP Diabetes Regimen
05/03/24 05/03/24 05/03/24
08:39 12:04 16:13
Glucose 147 H
POC Glucose 179 H 228 H
05/03/24 05/04/24 05/04/24
21:13 07:18 07:41
Glucose
POC Glucose 191 H 55 L* 64 L
Meal type: Lunch
Meal type: Breakfast
Amount consumed: 100%
Amount consumed: 100%
Patient Education
[2024-05-04 08:10] LABS: Glucose - Point of Care 111 mg/dl (70-99)
[2024-05-04] MEDS: ZETIA 10 MG PO (08:13)
[2024-05-04] MEDS: PROTONIX 40 MG PO (08:13)
[2024-05-04] MEDS: NOVOLOG FLEXPEN-LOW RESISTANCE SC ×3 (08:13→16:43)
[2024-05-04] MEDS: ASPIR LOW (ENTERIC COATED) 81 MG PO (08:14)
[2024-05-04] MEDS: FEOSOL 325 MG PO (08:14)
[2024-05-04] MEDS: NORVASC 10 MG PO (08:14)
[2024-05-04] MEDS: ZYLOPRIM 50 MG PO (08:14)
[2024-05-04] MEDS: PRAVACHOL 10 MG PO (08:14)
[2024-05-04] MEDS: SODIUM BICARBONATE 650 MG PO ×3 (08:14→22:05)
[2024-05-04] MEDS: TRICOR 145 MG PO (08:15)
[2024-05-04] MEDS: DESENEX/MITRAZOL/ZEASORB 1 APPLIC TOPICAL ×2 (08:16→22:11)
[2024-05-04] MEDS: NOVOLOG FLEXPEN SC ×2 (08:20→12:44)
[2024-05-04] MEDS: NOVOLOG FLEXPEN 3 UNITS SC ×3 (08:20→16:43)
[2024-05-04 09:45] LABS: % Basophils 0.4 % (0-2); % Eosinophils 2.9 % (0-6); % Immature Granulocytes 0.8 % (0-0.5); % Lymphocytes 18.4 % (20.5-51.1); % Monocytes 6.6 % (1.7-9.3); % Neutrophils 70.9 % (42.2-75.2); Absolute Eosinophils 0.1 10^3/uL (0-0.7); Absolute Lymphocytes 0.9 10^3/uL (1.2-3.4); Absolute Monocytes 0.3 10^3/uL (0.1-0.6); Absolute Neutrophils 3.4 10^3/uL (1.4-6.5); Hematocrit 24.7 % (37.0-47.0); Mean Corp Hgb Conc. 32.4 g/dL (33.0-37.0); Mean Corpuscular Hgb 31.1 pg (27.0-31.0); Mean Corpuscular Volume 96.1 fL (81.0-99.0); Mean Platelet Volume 10.9 fL (7.4-10.4); Nucleated Red Blood Cells % 0 %; Platelet Count 152 10^3/uL (130-400); Red Blood Cell Count 2.57 10^6/uL (4.20-5.40); Red Cell Dist. Width 15.7 % (11.5-14.5); White Blood Cell Count 4.8 10^3/uL (4.8-10.8)
[2024-05-04 10:06] LABS: Glucose - Point of Care 151 mg/dl (70-99)
--- NOTE | 2024-05-04 10:20 | CM ---
Pt was visiting family and became ill.
PT Ot indicated VN
Pt has hx with [facility] in the past.
Prior CM spoke with [facility] home health P#[phone]. Who accepted pt back .
Family will transport back home.
Plan:Home with [facility] report# [phone] :fax# [phone]
[2024-05-04 10:42] LABS: Blood Urea Nitrogen 41 mg/dl (7-17); Calcium 8.5 mg/dl (8.4-10.2); Carbon Dioxide 23 mmol/L (22-30); Chloride 108 mmol/L (98-107); Estimated Creatinine Clearance 22 ml/min; Glucose 32 mg/dl (70-99); Sodium 138 mmol/L (135-145); eGFR 29.21
--- NOTE | 2024-05-04 11:14 | W.PN.NEPH.PH ---
Today's Communication / Plan
-
Discontinued Lokelma for now with improved acidosis on bicarbonate and normalized potassium
Assessment/Plan
-
assessment
YELENA
CKD, stage unknown
UTI/Klebsiella
hyperkalemia
metabolic acidosis
diabetes mellitus type 2
heme positive stool
gout
hypothyroidism
CHF
Plan
follow BMP/uncertain baseline renal function
Creatinine up from 1.4-1.7
Hyperkalemic within normal limits today continue to hold EVA inhibitor
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
Lokelma ordered 3 times daily x 6 doses I will discontinue today with her last 2 readings 4.9 and 5
po bicarb still be provided for metabolic acidosis, continue TID
on synthroid
off bumex for now
-
-
Date of Service: May 04, 2024
CC / HPI / ROS
-
Chief Complaint:
YELENA
History of Present Illness:
YELENA/Cr down to 1.4>1.7
Potassium normalized
acidosis improved normalized with bicarbonate
sugars stable
BP stable
Review of Systems:
no CP/SOB
Weight down
Labs
-
Labs:
WBC 4.8 10^3/uL (4.8-10.8) 05/04/24 06:53
RBC 2.57 10^6/uL (4.20-5.40) L 05/04/24 06:53
Hgb 8.0 g/dL (12.0-16.0) L 05/04/24 06:53
Hct 24.7 % (37.0-47.0) L 05/04/24 06:53
Plt Count 152 10^3/uL (130-400) 05/04/24 06:53
Sodium 138 mmol/L (135-145) 05/04/24 06:53
Potassium 5.0 mmol/L (3.5-5.1) 05/04/24 06:53
Chloride 108 mmol/L (98-107) H 05/04/24 06:53
Carbon Dioxide 23 mmol/L (22-30) 05/04/24 06:53
BUN 41 mg/dl (7-17) H 05/04/24 06:53
Creatinine 1.7 mg/dL (0.6-1.0) H 05/04/24 06:53
eGFR 29.21 05/04/24 06:53
Glucose 32 mg/dl (70-99) L* 05/04/24 06:53
Calcium 8.5 mg/dl (8.4-10.2) 05/04/24 06:53
Albumin 4.1 g/dl (3.5-5.0) 04/27/24 15:04
Physical Exam
-
Vital Signs:
Vital Signs
Temp Pulse Resp BP Pulse Ox
97.7 F 83 20 154/68 97
05/04/24 07:30 05/04/24 08:14 05/04/24 07:30 05/04/24 08:14 05/04/24 09:41
Cardiovascular:: Regular rate and rhythm
Respiratory:: Bilateral: Coarse
Lung Excursion:: Normal
Abdomen:: Nontender and Soft
Bowel Sounds:: Normal
Extremity Edema:: +1: Bilateral:
[2024-05-04 11:57] LABS: Glucose - Point of Care 106 mg/dl (70-99)
[2024-05-04 12:15] LABS: Aldosterone, Serum 3.7 ng/dL; Aldosterone/Renin Activ Ratio 2.3 ratio (<=25.0); Renin Activity Results 1.6 ng/mL/hr
--- NOTE | 2024-05-04 12:46 | W.PN.HOSP.TC ---
Today's Communication/Plan
-
Monitor vital signs see plan
Venous Doppler
DC further antibiotics
Monitor renal function and potassium
Assessment / Plan
Assessment / Plan
Gen: NAD, Awake and alert
Eyes: EOMI, PERRLA, no scleral icterus.
Neck: supple.
CV: remains RRR, +S1/S2, no m/r/g.
Resp: remains CTAB, no rales, wheezes, or rhonchi.
Abd: +BS, soft, NT, ND
Skin: No rashes. trace B/L LE edema
Neuro: CN 2-12 intact, non-focal.
Psych: Normal mood and affect.
04/27/24 16:57 Urine Urine Culture - Final
Klebsiella pneumoniae
CXR: R perihilar/lower lobe opacity which may represent pneumonia or atelectasis.
Acute metabolic encephalopathy:
-likely due to YELENA, hypoglycemia, and acute UTI
DC further antibiotics, completed treatment
Now appears to be at baseline
Heme POS stool:
-heparin held O/N 04/29/24-04/30/24 (was bruising as well)
-Hb stable
-pt is on PO Fe but nursing reported very black stool. GI saw in c/s, no further inpt w/u at this time.
DM2:
-a1c 7.3%
-Jardiance ON HOLD
-Pt seen by diabetes FURNACE MECHANIC, titrated insulin
-SSI/accuchecks/diabetic diet
YELENA on CKD, stage unknown
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
-baseline Cr unknown
-Cr continues to improve
-renal U/S without hydronephrosis
-renal following
LE swelling
venous doppler
hx of toe amputation
-hyperkalemia: Now improving, Tracy HASSAN'd by nephrology. Continue with bicarb
Other problems:
Chronic anemia: Hb stable, Heme POS, cont PO Fe, see above
Bacterial PNA has been ruled out with NEG procalcitonin
Gout: cont Allopurinol
Essential hypertension: Cont Norvasc, holding ACEi with YELENA
GERD: cont PPI
Chronic CHF (unknown type): Bumex on hold with YELENA
Hyperlipidemia: Cont Zetia/fenofibrate
Morbid obesity due to excess calories
FULL/SCDs
I spent a total of 51 minutes with the patient or on the floor. More than 50% of this time involved counseling and coordination of care.
Anticipated Discharge: Within 24 hours
Subjective/Interval History
-
Date of Service: May 04, 2024
denies pain
Objective Data
-
Labs:
Laboratory Results
05/04/24
06:53
WBC 4.8
Hgb 8.0 L
Hct 24.7 L
Plt Count 152
Sodium 138
Potassium 5.0
Chloride 108 H
Carbon Dioxide 23
BUN 41 H
Creatinine 1.7 H
Glucose 32 L*
Calcium 8.5
Vital Signs:
Vital Signs
Temp Pulse Resp BP Pulse Ox
97.7 F 83 20 154/68 97
05/04/24 07:30 05/04/24 08:14 05/04/24 07:30 05/04/24 08:14 05/04/24 09:41
I&O
05/03/24 05/04/24 05/05/24
06:59 06:59 06:59
Intake Total 720 / 720 920 / 920
Balance 720 / 720 920 / 920
[2024-05-04 15:04] VITALS: BP 150/66
[2024-05-04 16:43] LABS: Glucose - Point of Care 149 mg/dl (70-99)
[2024-05-04 21:26] LABS: Glucose - Point of Care 156 mg/dl (70-99)
[2024-05-04] MEDS: LANTUS 0.04 UNITS SC (22:06)
[2024-05-04 23:12] VITALS: BP 157/66
[2024-05-05 03:41] LABS: Glucose - Point of Care 121 mg/dl (70-99)
[2024-05-05 06:00] VITALS: BMI 41.4
[2024-05-05] MEDS: SYNTHROID 75 MCG PO (06:19)
[2024-05-05] MEDS: TYLENOL 650 MG PO ×3 (06:20→23:32)
[2024-05-05 06:56] LABS: % Basophils 0.4 % (0-2); % Eosinophils 2.8 % (0-6); % Immature Granulocytes 0.6 % (0-0.5); % Lymphocytes 28.7 % (20.5-51.1); % Monocytes 6.9 % (1.7-9.3); % Neutrophils 60.6 % (42.2-75.2); Absolute Eosinophils 0.1 10^3/uL (0-0.7); Absolute Lymphocytes 1.4 10^3/uL (1.2-3.4); Absolute Monocytes 0.3 10^3/uL (0.1-0.6); Hematocrit 29.1 % (37.0-47.0); Hemoglobin 9.3 g/dL (12.0-16.0); Mean Corpuscular Hgb 31.2 pg (27.0-31.0); Mean Corpuscular Volume 97.7 fL (81.0-99.0); Mean Platelet Volume 10.4 fL (7.4-10.4); Nucleated Red Blood Cells % 0 %; Platelet Count 157 10^3/uL (130-400); Red Blood Cell Count 2.98 10^6/uL (4.20-5.40); Red Cell Dist. Width 15.9 % (11.5-14.5)
[2024-05-05 07:00] LABS: Glucose - Point of Care 120 mg/dl (70-99)
[2024-05-05 07:10] VITALS: BP 157/72
[2024-05-05 07:22] LABS: Blood Urea Nitrogen 47 mg/dl (7-17); Calcium 8.8 mg/dl (8.4-10.2); Carbon Dioxide 22 mmol/L (22-30); Chloride 107 mmol/L (98-107); Estimated Creatinine Clearance 22 ml/min; Glucose 116 mg/dl (70-99); Sodium 137 mmol/L (135-145); eGFR 29.21
[2024-05-05] MEDS: NOVOLOG FLEXPEN 3 UNITS SC ×3 (11:15→17:39)
[2024-05-05] MEDS: NOVOLOG FLEXPEN-LOW RESISTANCE SC (11:16)
[2024-05-05] MEDS: NORVASC 10 MG PO (11:16)
[2024-05-05] MEDS: PROTONIX 40 MG PO (11:16)
[2024-05-05] MEDS: SODIUM BICARBONATE 650 MG PO ×3 (11:16→22:37)
[2024-05-05] MEDS: ZETIA 10 MG PO (11:16)
[2024-05-05] MEDS: PRAVACHOL 10 MG PO (11:17)
[2024-05-05] MEDS: TRICOR 145 MG PO (11:17)
[2024-05-05] MEDS: FEOSOL 325 MG PO (11:17)
[2024-05-05] MEDS: ASPIR LOW (ENTERIC COATED) 81 MG PO (11:17)
[2024-05-05] MEDS: DESENEX/MITRAZOL/ZEASORB 1 APPLIC TOPICAL ×2 (11:20→22:38)
[2024-05-05] MEDS: FLUSH (NSS) 1 FLUSH IV (11:21)
--- NOTE | 2024-05-05 12:00 | W.PN.HOSP.TC ---
Today's Communication/Plan
-
monitor vitals
see plan
pt/ot
monitor renal function
hopeful dc soon
Assessment / Plan
Assessment / Plan
Gen: NAD, Awake and alert
Eyes: EOMI, PERRLA, no scleral icterus.
Neck: supple.
CV: remains RRR, +S1/S2, no m/r/g.
Resp: remains CTAB, no rales, wheezes, or rhonchi.
Abd: +BS, soft, NT, ND
Skin: No rashes. trace B/L LE edema
Neuro: CN 2-12 intact, non-focal.
Psych: Normal mood and affect.
04/27/24 16:57 Urine Urine Culture - Final
Klebsiella pneumoniae
CXR: R perihilar/lower lobe opacity which may represent pneumonia or atelectasis.
Acute metabolic encephalopathy:
-likely due to YELENA, hypoglycemia, and acute UTI
DC further antibiotics, completed treatment
Now appears to be at baseline
Heme POS stool:
-heparin held O/N 04/29/24-04/30/24 (was bruising as well)
-Hb stable
-pt is on PO Fe but nursing reported very black stool. GI saw in c/s, no further inpt w/u at this time.
DM2:
-a1c 7.3%
-Jardiance ON HOLD
-Pt seen by diabetes UTILITY TRACTOR OPERATOR, titrated insulin
-SSI/accuchecks/diabetic diet
YELENA on CKD, stage unknown
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
-baseline Cr unknown
-Cr continues to improve
-renal U/S without hydronephrosis
-renal following
LE swelling
venous doppler neg for DVT
diffuse swelling
hx of toe amputation
-hyperkalemia: Now improving, Tracy HASSAN'd by nephrology. Continue with bicarb
Other problems:
Chronic anemia: Hb stable, Heme POS, cont PO Fe, see above
Bacterial PNA has been ruled out with NEG procalcitonin
Gout: cont Allopurinol
Essential hypertension: Cont Norvasc, holding ACEi with YELENA
GERD: cont PPI
Chronic CHF (unknown type): Bumex on hold with YELENA
Hyperlipidemia: Cont Zetia/fenofibrate
Morbid obesity due to excess calories
FULL/SCDs
Anticipated Discharge: Today
Subjective/Interval History
-
Date of Service: May 05, 2024
denies nausea
Objective Data
-
Labs:
Laboratory Results
05/05/24
06:05
WBC 5.0
Hgb 9.3 L
Hct 29.1 L
Plt Count 157
Sodium 137
Potassium 5.0
Chloride 107
Carbon Dioxide 22
BUN 47 H
Creatinine 1.7 H
Glucose 116 H
Calcium 8.8
Vital Signs:
Vital Signs
Temp Pulse Resp BP Pulse Ox
97.3 F 68 16 157/72 97
05/05/24 07:10 05/05/24 07:10 05/05/24 07:10 05/05/24 07:10 05/05/24 07:10
I&O
05/04/24 05/05/24 05/06/24
06:59 06:59 06:59
Intake Total 920 / 920 1080 / 1080
Balance 920 / 920 1080 / 1080
[2024-05-05 12:17] LABS: Glucose - Point of Care 248 mg/dl (70-99)
--- NOTE | 2024-05-05 12:19 | W.PN.NEPH.PH ---
Today's Communication / Plan
-
Ordered 1 dose of Bumex today with increasing weights and edema
Assessment/Plan
-
assessment
YELENA
CKD, stage unknown
UTI/Klebsiella
hyperkalemia
metabolic acidosis
diabetes mellitus type 2
heme positive stool
gout
hypothyroidism
CHF
Plan
follow BMP/uncertain baseline renal function
Creatinine up from 1.4>1.7>1.7 stable
Hyperkalemic within normal limits today continue to hold EVA inhibitor
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
Lokelma status post
po bicarb still be provided for metabolic acidosis, continue TID
on synthroid
okay with restarting both Bumex and lisinopril
I will give her 1 dose of Bumex today and she complains of lower extremity weakness status post ultrasound which show significant peripheral edema
She is up 4 kg since admission
Antibiotics completed
-
-
Date of Service: May 05, 2024
CC / HPI / ROS
-
Chief Complaint:
YELENA
History of Present Illness:
YELENA/Cr down to 1.4>1.7
Potassium normalized
acidosis improved normalized with bicarbonate
sugars stable
BP stable
Review of Systems:
no CP/SOB
Complains of leg weakness with evidence of edema
Labs
-
Labs:
WBC 5.0 10^3/uL (4.8-10.8) 05/05/24 06:05
RBC 2.98 10^6/uL (4.20-5.40) L 05/05/24 06:05
Hgb 9.3 g/dL (12.0-16.0) L 05/05/24 06:05
Hct 29.1 % (37.0-47.0) L 05/05/24 06:05
Plt Count 157 10^3/uL (130-400) 05/05/24 06:05
Sodium 137 mmol/L (135-145) 05/05/24 06:05
Potassium 5.0 mmol/L (3.5-5.1) 05/05/24 06:05
Chloride 107 mmol/L (98-107) 05/05/24 06:05
Carbon Dioxide 22 mmol/L (22-30) 05/05/24 06:05
BUN 47 mg/dl (7-17) H 05/05/24 06:05
Creatinine 1.7 mg/dL (0.6-1.0) H 05/05/24 06:05
eGFR 29.21 05/05/24 06:05
Glucose 116 mg/dl (70-99) H 05/05/24 06:05
Calcium 8.8 mg/dl (8.4-10.2) 05/05/24 06:05
Albumin 4.1 g/dl (3.5-5.0) 04/27/24 15:04
Physical Exam
-
Vital Signs:
Vital Signs
Temp Pulse Resp BP Pulse Ox
97.3 F 68 16 157/72 97
05/05/24 07:10 05/05/24 07:10 05/05/24 07:10 05/05/24 07:10 05/05/24 07:10
Cardiovascular:: Regular rate and rhythm
Respiratory:: Bilateral: Coarse
Lung Excursion:: Normal
Abdomen:: Nontender and Soft
Bowel Sounds:: Normal
Extremity Edema:: +2: Bilateral:
[2024-05-05] MEDS: NOVOLOG FLEXPEN-LOW RESISTANCE 2 UNITS SC (13:20)
[2024-05-05] MEDS: BUMEX 1 MG IV (13:27)
[2024-05-05] MEDS: FLUSH (NSS) 2 FLUSH IV (13:28)
[2024-05-05 15:10] VITALS: BP 153/62
[2024-05-05 17:06] LABS: Glucose - Point of Care 185 mg/dl (70-99)
[2024-05-05] MEDS: NOVOLOG FLEXPEN-LOW RESISTANCE 1 UNITS SC (17:38)
[2024-05-05 21:06] LABS: Glucose - Point of Care 248 mg/dl (70-99)
[2024-05-05] MEDS: LANTUS 0.04 UNITS SC (22:38)
[2024-05-05 23:33] VITALS: BP 155/65
[2024-05-06 04:58] VITALS: BMI 41.4
[2024-05-06] MEDS: SYNTHROID 75 MCG PO (05:41)
[2024-05-06] MEDS: TYLENOL 650 MG PO ×2 (05:46→19:29)
[2024-05-06 07:51] LABS: % Basophils 0.5 % (0-2); % Eosinophils 2.8 % (0-6); % Immature Granulocytes 0.5 % (0-0.5); % Lymphocytes 26.3 % (20.5-51.1); % Monocytes 7.3 % (1.7-9.3); % Neutrophils 62.6 % (42.2-75.2); Absolute Eosinophils 0.1 10^3/uL (0-0.7); Absolute Lymphocytes 1.1 10^3/uL (1.2-3.4); Absolute Monocytes 0.3 10^3/uL (0.1-0.6); Absolute Neutrophils 2.6 10^3/uL (1.4-6.5); Hematocrit 25.1 % (37.0-47.0); Hemoglobin 8.1 g/dL (12.0-16.0); Mean Corp Hgb Conc. 32.3 g/dL (33.0-37.0); Mean Corpuscular Hgb 31.3 pg (27.0-31.0); Mean Corpuscular Volume 96.9 fL (81.0-99.0); Mean Platelet Volume 10.6 fL (7.4-10.4); Nucleated Red Blood Cells % 0 %; Platelet Count 144 10^3/uL (130-400); Red Blood Cell Count 2.59 10^6/uL (4.20-5.40); Red Cell Dist. Width 15.5 % (11.5-14.5); White Blood Cell Count 4.2 10^3/uL (4.8-10.8)
--- NOTE | 2024-05-06 07:52 | PN.DE.MGMTRT ---
Insulin Management
- -
05/04/2024 Diabetes Management Consult
Patient admitted 04/27 for hypoglycemia. She is visiting family for the holiday. PMH HTN, diabetes, UTI. Prior to admission was taking 16 units lantus @ hs with novolog or apidra 12 with breakfast and dinner and 4 with lunch using a ss, and
Jardiance 10 mg daily.
A1C on admission 7.3%, cr 2.1, eGFR 22.66
Patient is awake alert and oriented able to discuss diabetes care. She was last to endocrine 3 years ago, she moved to the [facility] 3 years ago and has not seen an endo since.
Cr today1.7, eGFR 29.21. Pre meal glucose 05/05 120 to 185 HS glucose 248. HS lantus 4 units administered. . Will continue HS lantus 4 units, and 3 units novolog AC with low corrective
Will follow
Diabetes History
- -
Type of Diabetes: 2 requiring insulin
Pre-Admission Diabetes Regimen
Lab Results
Hemoglobin A1c 7.3 % (4.0-5.6) H 04/28/24 06:22
Insulin Pump Settings
IP Diabetes Regimen
05/05/24 05/05/24 05/05/24
12:16 17:05 21:04
POC Glucose 248 H 185 H 248 H
Meal type: Lunch
Meal type: Breakfast
Amount consumed: 100%
Amount consumed: 100%
Patient Education
[2024-05-06 07:59] LABS: Glucose - Point of Care 169 mg/dl (70-99)
[2024-05-06 08:19] LABS: Blood Urea Nitrogen 52 mg/dl (7-17); Calcium 8.6 mg/dl (8.4-10.2); Carbon Dioxide 24 mmol/L (22-30); Chloride 107 mmol/L (98-107); Estimated Creatinine Clearance 22 ml/min; Glucose 178 mg/dl (70-99); Potassium 4.8 mmol/L (3.5-5.1); Sodium 138 mmol/L (135-145); eGFR 29.21
[2024-05-06 08:33] VITALS: BP 172/70
[2024-05-06] MEDS: PROTONIX 40 MG PO (08:34)
[2024-05-06] MEDS: TRICOR 145 MG PO (08:34)
[2024-05-06] MEDS: NOVOLOG FLEXPEN 3 UNITS SC ×3 (08:34→16:27)
[2024-05-06] MEDS: NOVOLOG FLEXPEN-LOW RESISTANCE 1 UNITS SC ×2 (08:34→16:26)
[2024-05-06] MEDS: FEOSOL 325 MG PO (08:34)
[2024-05-06] MEDS: ZETIA 10 MG PO (08:34)
[2024-05-06] MEDS: ZYLOPRIM 50 MG PO (08:34)
[2024-05-06] MEDS: NORVASC 10 MG PO (08:35)
[2024-05-06] MEDS: SODIUM BICARBONATE 650 MG PO ×3 (08:35→22:25)
[2024-05-06] MEDS: DESENEX/MITRAZOL/ZEASORB 1 APPLIC TOPICAL ×2 (08:40→19:26)
[2024-05-06] MEDS: ASPIR LOW (ENTERIC COATED) 81 MG PO (08:40)
[2024-05-06] MEDS: PRAVACHOL 10 MG PO (08:40)
--- NOTE | 2024-05-06 11:19 | CM ---
Pt [facility].
[facility] P#[phone]. Who accepted pt back .
Family will transport back home.
Plan:Home with [facility] report# [phone] :fax# [phone]
--- NOTE | 2024-05-06 11:35 | W.PN.NEPH.PH ---
Today's Communication / Plan
-
bumex
Assessment/Plan
-
assessment
YELENA
CKD, stage unknown
UTI/Klebsiella
hyperkalemia
metabolic acidosis
diabetes mellitus type 2
heme positive stool
gout
hypothyroidism
CHF
Plan
follow BMP
restart bumex po
holding lisinopril for now
continue bicarb
-
-
Date of Service: May 06, 2024
CC / HPI / ROS
-
Chief Complaint:
YELENA
History of Present Illness:
YELENA/Cr stable at 1.7
Potassium normalized
acidosis normalized with bicarbonate
sugars stable
BP stable
Review of Systems:
no CP/SOB
Complains of edema
Labs
-
Labs:
WBC 4.2 10^3/uL (4.8-10.8) L 05/06/24 06:55
RBC 2.59 10^6/uL (4.20-5.40) L 05/06/24 06:55
Hgb 8.1 g/dL (12.0-16.0) L 05/06/24 06:55
Hct 25.1 % (37.0-47.0) L 05/06/24 06:55
Plt Count 144 10^3/uL (130-400) 05/06/24 06:55
Sodium 138 mmol/L (135-145) 05/06/24 06:55
Potassium 4.8 mmol/L (3.5-5.1) 05/06/24 06:55
Chloride 107 mmol/L (98-107) 05/06/24 06:55
Carbon Dioxide 24 mmol/L (22-30) 05/06/24 06:55
BUN 52 mg/dl (7-17) H 05/06/24 06:55
Creatinine 1.7 mg/dL (0.6-1.0) H 05/06/24 06:55
eGFR 29.21 05/06/24 06:55
Glucose 178 mg/dl (70-99) H 05/06/24 06:55
Calcium 8.6 mg/dl (8.4-10.2) 05/06/24 06:55
Albumin 4.1 g/dl (3.5-5.0) 04/27/24 15:04
Physical Exam
-
Vital Signs:
Vital Signs
Temp Pulse Resp BP Pulse Ox
97.3 F 66 18 161/71 100
05/06/24 08:33 05/06/24 08:35 05/06/24 08:33 05/06/24 08:35 05/06/24 08:33
Cardiovascular:: Regular rate and rhythm
Respiratory:: Bilateral: Coarse
Lung Excursion:: Normal
Abdomen:: Nontender and Soft
Bowel Sounds:: Normal
Extremity Edema:: +3: Bilateral:
[2024-05-06 11:56] LABS: Glucose - Point of Care 211 mg/dl (70-99)
[2024-05-06] MEDS: NOVOLOG FLEXPEN-LOW RESISTANCE 2 UNITS SC (12:14)
[2024-05-06] MEDS: BUMEX 1 MG PO ×2 (12:15→19:30)
--- NOTE | 2024-05-06 12:33 | W.PN.HOSP.TC ---
Today's Communication/Plan
-
Monitor vital sign
see plan
Bumex restarted
Monitor renal function
PT/OT
Assessment / Plan
Assessment / Plan
Gen: NAD, Awake and alert
Eyes: EOMI, PERRLA, no scleral icterus.
Neck: supple.
CV: remains RRR, +S1/S2, no m/r/g.
Resp: remains CTAB, no rales, wheezes, or rhonchi.
Abd: +BS, soft, NT, ND
Skin: No rashes. trace B/L LE edema
Neuro: CN 2-12 intact, non-focal.
Psych: Normal mood and affect.
04/27/24 16:57 Urine Urine Culture - Final
Klebsiella pneumoniae
CXR: R perihilar/lower lobe opacity which may represent pneumonia or atelectasis.
Acute metabolic encephalopathy:
-likely due to YELENA, hypoglycemia, and acute UTI
DC further antibiotics, completed treatment
Now appears to be at baseline
Heme POS stool:
-heparin held O/N 04/29/24-04/30/24 (was bruising as well)
-Hb stable
-pt is on PO Fe but nursing reported very black stool. GI saw in c/s, no further inpt w/u at this time.
DM2:
-a1c 7.3%
-Jardiance ON HOLD
-Pt seen by diabetes INSPECTOR RAG SORTING, titrated insulin
-SSI/accuchecks/diabetic diet
YELENA on CKD, stage unknown
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
-baseline Cr unknown
-Cr continues to improve
-renal U/S without hydronephrosis
-renal following
bumex restarted
LE swelling
venous doppler neg for DVT
diffuse swelling
hx of toe amputation
-hyperkalemia: Now improving, Tracy HASSAN'd by nephrology. Continue with bicarb
Other problems:
Chronic anemia: Hb stable, Heme POS, cont PO Fe, see above
Bacterial PNA has been ruled out with NEG procalcitonin
Gout: cont Allopurinol
Essential hypertension: Cont Norvasc, holding ACEi with YELENA
GERD: cont PPI
Chronic CHF (unknown type): Bumex restarted
Hyperlipidemia: Cont Zetia/fenofibrate
Morbid obesity due to excess calories
FULL/SCDs
Anticipated Discharge: Within 24 hours
Subjective/Interval History
-
Date of Service: May 06, 2024
denies pain
Objective Data
-
Labs:
Laboratory Results
05/06/24
06:55
WBC 4.2 L
Hgb 8.1 L
Hct 25.1 L
Plt Count 144
Sodium 138
Potassium 4.8
Chloride 107
Carbon Dioxide 24
BUN 52 H
Creatinine 1.7 H
Glucose 178 H
Calcium 8.6
Vital Signs:
Vital Signs
Temp Pulse Resp BP Pulse Ox
97.3 F 68 18 126/76 100
05/06/24 08:33 05/06/24 12:15 05/06/24 08:33 05/06/24 12:15 05/06/24 08:33
I&O
05/05/24 05/06/24 05/07/24
06:59 06:59 06:59
Intake Total 1080 / 1080 180 / 180
Balance 1080 / 1080 180 / 180
[2024-05-06 16:07] VITALS: BP 176/74
[2024-05-06 16:22] LABS: Glucose - Point of Care 194 mg/dl (70-99)
--- NOTE | 2024-05-06 16:27 | CM ---
Spoke with pt in room.
Reviewed IMM with pt she signed on chart.
Pt [facility]x [facility] in the past.
[facility] P#[phone]. Who accepted pt back .
[facility] dgt will transport back home.
Plan:Home with [facility] report# [phone] :fax [phone]
[2024-05-06 16:34] VITALS: BP 154/67
[2024-05-06 21:59] LABS: Glucose - Point of Care 237 mg/dl (70-99)
[2024-05-06] MEDS: LANTUS 0.04 UNITS SC (22:25)
[2024-05-06] MEDS: APRESOLINE 5 MG IV (23:19)
[2024-05-06 23:23] VITALS: BP 173/68
[2024-05-07] MEDS: TYLENOL 650 MG PO ×2 (04:05→13:08)
[2024-05-07] MEDS: SYNTHROID 75 MCG PO (04:05)
[2024-05-07 06:00] VITALS: BMI 40.6
--- NOTE | 2024-05-07 07:24 | PN.DE.MGMTRT ---
Insulin Management
- -
05/07/2024 Diabetes Management Consult Follow up
Patient admitted 04/27 for hypoglycemia. She is visiting family for the holiday. PMH HTN, diabetes, UTI. Prior to admission was taking 16 units lantus @ hs with novolog or apidra 12 with breakfast and dinner and 4 with lunch using a ss, and
Jardiance 10 mg daily.
A1C on admission 7.3%, cr 2.1, eGFR 22.66
Patient is awake alert and oriented able to discuss diabetes care. She was last to endocrine 3 years ago, she moved to the [facility] 3 years ago and has not seen an endo since.
Cr stable 1.7, eGFR 29.21. Pre meal glucose 1/2 169 to 237 HS glucose 237. HS lantus 4 units administered. Will continue HS lantus 4 units, and increase AC novolog from 3 units to 4 units novolog AC with low corrective
Will follow
Diabetes History
- -
Type of Diabetes: 2 requiring insulin
Pre-Admission Diabetes Regimen
05/06/24
06:55
Creatinine 1.7 H
Lab Results
Hemoglobin A1c 7.3 % (4.0-5.6) H 04/28/24 06:22
Insulin Pump Settings
IP Diabetes Regimen
05/06/24 05/06/24 05/06/24
06:55 07:57 11:54
Glucose 178 H
POC Glucose 169 H 211 H
05/06/24 05/06/24
16:14 21:58
Glucose
POC Glucose 194 H 237 H
Meal type: Dinner
Meal type: Lunch
Meal type: Breakfast
Meal type: Breakfast
Amount consumed: 100%
Amount consumed: 100%
Amount consumed: 100%
Amount consumed: 100%
Patient Education
[2024-05-07 07:30] LABS: Glucose - Point of Care 133 mg/dl (70-99)
[2024-05-07 07:35] VITALS: BP 123/73
[2024-05-07 09:29] LABS: % Basophils 0.4 % (0-2); % Eosinophils 2.2 % (0-6); % Immature Granulocytes 0.7 % (0-0.5); % Lymphocytes 20.8 % (20.5-51.1); % Monocytes 6.3 % (1.7-9.3); % Neutrophils 69.6 % (42.2-75.2); Absolute Eosinophils 0.1 10^3/uL (0-0.7); Absolute Lymphocytes 1.1 10^3/uL (1.2-3.4); Absolute Monocytes 0.3 10^3/uL (0.1-0.6); Absolute Neutrophils 3.8 10^3/uL (1.4-6.5); Hematocrit 28.9 % (37.0-47.0); Hemoglobin 9.3 g/dL (12.0-16.0); Mean Corp Hgb Conc. 32.2 g/dL (33.0-37.0); Mean Corpuscular Hgb 31.2 pg (27.0-31.0); Mean Platelet Volume 10.6 fL (7.4-10.4); Nucleated Red Blood Cells % 0 %; Platelet Count 207 10^3/uL (130-400); Red Blood Cell Count 2.98 10^6/uL (4.20-5.40); Red Cell Dist. Width 15.7 % (11.5-14.5); White Blood Cell Count 5.4 10^3/uL (4.8-10.8)
[2024-05-07] MEDS: NOVOLOG FLEXPEN-LOW RESISTANCE SC (09:52)
[2024-05-07] MEDS: DESENEX/MITRAZOL/ZEASORB 1 APPLIC TOPICAL (10:02)
[2024-05-07] MEDS: FEOSOL 325 MG PO (10:02)
[2024-05-07] MEDS: PRAVACHOL 10 MG PO (10:03)
[2024-05-07] MEDS: NOVOLOG FLEXPEN 4 UNITS SC ×2 (10:03→11:52)
[2024-05-07] MEDS: SODIUM BICARBONATE 650 MG PO ×2 (10:04→16:02)
[2024-05-07] MEDS: NORVASC 10 MG PO (10:05)
[2024-05-07] MEDS: ASPIR LOW (ENTERIC COATED) 81 MG PO (10:05)
[2024-05-07] MEDS: PROTONIX 40 MG PO (10:05)
[2024-05-07] MEDS: TRICOR 145 MG PO (10:06)
[2024-05-07] MEDS: ZETIA 10 MG PO (10:07)
[2024-05-07 10:19] LABS: Blood Urea Nitrogen 54 mg/dl (7-17); Calcium 9.1 mg/dl (8.4-10.2); Carbon Dioxide 20 mmol/L (22-30); Chloride 104 mmol/L (98-107); Estimated Creatinine Clearance 23 ml/min; Glucose 136 mg/dl (70-99); Potassium 4.8 mmol/L (3.5-5.1); Sodium 134 mmol/L (135-145); eGFR 31.41
[2024-05-07] MEDS: BUMEX 1 MG PO (10:25)
[2024-05-07 11:42] LABS: Glucose - Point of Care 238 mg/dl (70-99)
[2024-05-07] MEDS: NOVOLOG FLEXPEN-LOW RESISTANCE 2 UNITS SC (11:53)
--- NOTE | 2024-05-07 12:06 | W.PN.HOSP.TC ---
Addendum entered and electronically signed by Andrew Godoy MD 05/07/24 12:59:
Discussed with daughter over the phone. Explained DC instructions.
Time of discharge 39 minutes
Addendum entered and electronically signed by Andrew Godoy MD 05/07/24 12:50:
Hypothyroidism
Started Synthroid
Repeat TSH with reflex to free T4 in 4 weeks
Original Note:
Today's Communication/Plan
-
monitor vitals
see plan
cr 1.6 today
repeat BMP next week
ok to dc if ok with nephrology
Assessment / Plan
Assessment / Plan
Gen: NAD, Awake and alert
Eyes: EOMI, PERRLA, no scleral icterus.
Neck: supple.
CV: remains RRR, +S1/S2, no m/r/g.
Resp: remains CTAB, no rales, wheezes, or rhonchi.
Abd: +BS, soft, NT, ND
Skin: No rashes. trace B/L LE edema
Neuro: CN 2-12 intact, non-focal.
Psych: Normal mood and affect.
04/27/24 16:57 Urine Urine Culture - Final
Klebsiella pneumoniae
CXR: R perihilar/lower lobe opacity which may represent pneumonia or atelectasis.
Acute metabolic encephalopathy:
-likely due to YELENA, hypoglycemia, and acute UTI
DC further antibiotics, completed treatment
Now appears to be at baseline
Heme POS stool:
-heparin held O/N 04/29/24-04/30/24 (was bruising as well)
-Hb stable
-pt is on PO Fe but nursing reported very black stool. GI saw in c/s, no further inpt w/u at this time.
DM2:
-a1c 7.3%
-Jardiance ON HOLD
-Pt seen by diabetes TOP LIFT TRIMMER, titrated insulin
-SSI/accuchecks/diabetic diet
YELENA on CKD, stage unknown
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
-baseline Cr unknown
-Cr continues to improve
-renal U/S without hydronephrosis
-renal following
bumex restarted
hyponatremia
monitor
LE swelling
venous doppler neg for DVT
diffuse swelling
hx of toe amputation
-hyperkalemia: Now improving, Tracy HASSAN'sofy by nephrology. Continue with bicarb
Other problems:
Chronic anemia: Hb stable, Heme POS, cont PO Fe, see above
Bacterial PNA has been ruled out with NEG procalcitonin
Gout: cont Allopurinol
Essential hypertension: Cont Norvasc, holding ACEi with YELENA
GERD: cont PPI
Chronic CHF (unknown type): Bumex restarted
Hyperlipidemia: Cont Zetia/fenofibrate
Morbid obesity due to excess calories
FULL/SCDs
Anticipated Discharge: Today
Subjective/Interval History
-
Date of Service: May 07, 2024
denies pain
Objective Data
-
Labs:
Laboratory Results
05/07/24
08:35
WBC 5.4
Hgb 9.3 L
Hct 28.9 L
Plt Count 207 D
Sodium 134 L
Potassium 4.8
Chloride 104
Carbon Dioxide 20 L
BUN 54 H
Creatinine 1.6 H
Glucose 136 H
Calcium 9.1
Vital Signs:
Vital Signs
Temp Pulse Resp BP Pulse Ox
98.7 F 75 20 123/73 94
05/07/24 07:35 05/07/24 07:35 05/07/24 07:35 05/07/24 07:35 05/07/24 08:00
I&O
05/06/24 05/07/24 05/08/24
06:59 06:59 06:59
Intake Total 180 / 180 240 / 240
Balance 180 / 180 240 / 240
--- NOTE | 2024-05-07 12:45 | W.PN.NEPH.PH ---
Today's Communication / Plan
-
ok for d/c
Assessment/Plan
-
assessment
YELENA
CKD, stage unknown
UTI/Klebsiella
hyperkalemia
metabolic acidosis
diabetes mellitus type 2
heme positive stool
gout
hypothyroidism
CHF
Plan:
Improving cr -possible cr at baseline
ok resume ACEI
follow BMP in week
cont bicarb for met acidosis
cont home bumex dose
f/u her master control operator
-
-
Date of Service: May 07, 2024
CC / HPI / ROS
-
Chief Complaint:
YELENA
History of Present Illness:
YELENA/Cr stable at 1.6
Potassium normalized
acidosis bicarb 2
sugars stable
BP stable
Review of Systems:
no CP/SOB
Complains of edema-chronic
Labs
-
Labs:
WBC 5.4 10^3/uL (4.8-10.8) 05/07/24 08:35
RBC 2.98 10^6/uL (4.20-5.40) L 05/07/24 08:35
Hgb 9.3 g/dL (12.0-16.0) L 05/07/24 08:35
Hct 28.9 % (37.0-47.0) L 05/07/24 08:35
Plt Count 207 10^3/uL (130-400) D 05/07/24 08:35
Sodium 134 mmol/L (135-145) L 05/07/24 08:35
Potassium 4.8 mmol/L (3.5-5.1) 05/07/24 08:35
Chloride 104 mmol/L (98-107) 05/07/24 08:35
Carbon Dioxide 20 mmol/L (22-30) L 05/07/24 08:35
BUN 54 mg/dl (7-17) H 05/07/24 08:35
Creatinine 1.6 mg/dL (0.6-1.0) H 05/07/24 08:35
eGFR 31.41 05/07/24 08:35
Glucose 136 mg/dl (70-99) H 05/07/24 08:35
Calcium 9.1 mg/dl (8.4-10.2) 05/07/24 08:35
Albumin 4.1 g/dl (3.5-5.0) 04/27/24 15:04
Physical Exam
-
Vital Signs:
Vital Signs
Temp Pulse Resp BP Pulse Ox
98.7 F 75 20 123/73 94
05/07/24 07:35 05/07/24 07:35 05/07/24 07:35 05/07/24 07:35 05/07/24 08:00
Cardiovascular:: Regular rate and rhythm
Respiratory:: Bilateral: CTA
Lung Excursion:: Normal
Abdomen:: Nontender and Soft
Extremity Edema:: +1: Bilateral:
Dawson Catheter: No
--- NOTE | 2024-05-07 13:03 | CM ---
entered order for discahrge.
Pt [facility]x [facility] in the past.
[facility] P#[phone]. Who accepted pt back .
[facility] dgt will transport back home.
Plan:Home with [facility] report# [phone] :fax [phone]
--- NOTE | 2024-05-07 13:09 | W.DCSUMMARY ---
Discharge Summary
Discharge Data
Date of Admission: 04/27/24
Date of Discharge: 05/07/24
-
Pending Results: No
Hospital Course
83-year-old female with past medical history of diabetes mellitus, CKD, chronic anemia, gout, essential hypertension, GERD, CHF, hyperlipidemia, morbid obesity came to the hospital with metabolic encephalopathy secondary to acute kidney injury,
hyperglycemia and acute UTI. Patient was treated with antibiotics for her UTI and she finished antibiotics prior to discharge. For her hypoglycemia she was seen by diabetes nurse practitioner who titrated her medications. For acute kidney injury
on chronic kidney disease she was seen by nephrology throughout hospitalization and upon discharge she will instructed to follow-up with her own outpatient packerhead machine operator. She also had heme positive stool and had multiple bruising. Her subcutaneous
heparin was held. She was seen by GI who did not wanted any further inpatient workup. She also had elevated potassium multiple times in the hospital and required Lokelma. Patient was seen by physical therapy who recommended home health. While
she was in the hospital she also had elevated TSH where she was started on Synthroid. On discharge she will instructed to follow-up closely outpatient for repeat levels of her thyroid. Once her symptoms continue to improve, she was then discharged
home with instructions to follow-up with all her physicians outpatient.
Discharge Plan
-
Patient Disposition: Home (Routine Discharge)
Discharge Diagnosis/Procedures: Acute metabolic encephalopathy
Urinary tract infection
Hypoglycemia
Heme positive stool
YELENA on CKD
Hyperkalemia
Metabolic acidosis
Hypothyroidism
Diet: As tolerated
Activity: As tolerated
Driving Restrictions: As prior to admission
Bathing Restrictions: None
Blood Work: BMP next week with nephrology, Repeat TSH with reflex to free T4 in 4 weeks
Activity Restrictions/Additional Instructions:
Please follow-up with your packerhead machine operator next week
Repeat TSH with reflex to free T4 in 4 weeks
Follow-up with your physician for titrating insulin
Referrals:
UNKNOWN - PT DOES,NOT KNOW [Family Provider] - in less than 1 week
Prescriptions:
New
miconazole nitrate [Miconazorb AF] 2 % Powder
1 applic topical BID Qty: 85 0RF
levothyroxine 75 mcg Tablet
75 mcg PO DAILY @ 0600 Qty: 30 0RF
sodium bicarbonate 650 mg Tablet
650 mg PO TID Qty: 15 0RF
acetaminophen 325 mg Tablet
650 mg PO Q4HPRN PRN (Reason: mild pain/ARTHUR/temp> 100.4F) Qty: 0 0RF
Continued
allopurinol 100 mg Tablet
100 mg PO DAILY
aspirin 81 mg Tablet,Delayed Release (Dr/Ec)
81 mg PO DAILY
pravastatin 10 mg Tablet
10 mg PO DAILY
ferrous sulfate 325 mg (65 mg iron) Tablet
325 mg PO DAILY
lisinopril 30 mg Tablet
30 mg PO DAILY
bumetanide 1 mg Tablet
1 mg PO BID
ezetimibe [Zetia] 10 mg Tablet
10 mg PO DAILY
fenofibrate nanocrystallized 145 mg Tablet
145 mg PO DAILY
omeprazole 20 mg Tablet,Delayed Release (Dr/Ec)
20 mg PO DAILY
Jardiance 10 mg Tablet
10 mg PO DAILY
amlodipine [Norvasc] 10 mg Tablet
10 mg PO DAILY
Changed
Apidra SoloStar U-100 Insulin 100 unit/mL Insulin Pen
4 sliding scale dose SC AC Qty: 0 0RF
insulin glargine [Lantus Solostar U-100 Insulin] 100 unit/mL (3 mL) Insulin Pen
4 unit SC HS Qty: 0 0RF
Patient Comments:
family stated patient just gives herself what ever units she think she needs.
Discharge Orders:
Discharge Patient (As Directed); Ordered 05/07/24
Ordered By: Andrew Godoy
Discharge Date and Time
Discharge Date/Time: 05/07/24 16:45
Print Language: SPANISH
[2024-05-07 13:46] VITALS: BP 149/69
== END 2024-05-07 16:45 | disposition home health service (06) | DRG 682 ==
LOC: 4 EAST ACU 18:58
PROVIDERS: Emergency Medicine; Internal Medicine; Registered Nurse; ADMITTING PHYSICIAN Internal Medicine; ATTENDING PHYSICIAN Internal Medicine; CONSULT PHYSICIAN Internal Medicine Gastroenterology; CONSULT PHYSICIAN Specialist; EMERGENCY PHYSICIAN Student in an Organized Health Care Education/Training Program
DX: N17.9 Acute kidney failure, unspecified (principal); G93.41 Metabolic encephalopathy; E87.20 Acidosis, unspecified; N39.0 Urinary tract infection, site not specified; I13.0 Hypertensive heart and chronic kidney disease with heart failure and stage 1 through stage 4 chronic kidney disease, or unspecified chronic kidney disease; D53.9 Nutritional anemia, unspecified; E86.0 Dehydration; N18.30 Chronic kidney disease, stage 3 unspecified; M10.9 Gout, unspecified; K21.9 Gastro-esophageal reflux disease without esophagitis; E78.5 Hyperlipidemia, unspecified; E87.5 Hyperkalemia; E11.22 Type 2 diabetes mellitus with diabetic chronic kidney disease; E11.649 Type 2 diabetes mellitus with hypoglycemia without coma; E03.9 Hypothyroidism, unspecified; I50.9 Heart failure, unspecified
CPT/HCPCS: 51701; 71046; 76775; 80048; 80053; 81003; 81015; 82088; 82607; 82728; 82746; 82947; 82962; 83036; 84132; 84145; 84244; 84439; 84443; 85025; 85027; 86850; 86900; 86901; 87077; 87086; 87186; 93970; 96361; 96374; 97110; 97116; 97161; 97166; 97530; 99285